=== PATIENT | male | born 1940 | race Caucasian/White ===

== ENCOUNTER → 2018-05-03 13:36 | Outpatient (CLI) | payer MEDICARE, BC, SELFPAY ==
--- NOTE | 2018-05-03 13:47 | RAD_ITS ---
STUDY: X-RAY - RIGHT SHOULDER REASON FOR EXAM: Male, 78 years old. Injury. Pain. TECHNIQUE: 4 view(s) of the shoulder. COMPARISON: None. 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 There is degenerative arthrosis of the acromioclavicular joint without inferior osseous spur formation. Normal acromion. Normal humeral head and visualized proximal humerus. The soft tissue structures are unremarkable. There is no demonstrated fracture. Normal visualized pulmonary apex. RAD/Shoulder min 2 Views IMPRESSION: Degenerative changes. No acute fractures or dislocations. Electronically Signed: Juan Antonio Taylor MD at 13:50 EDT , Service support ,
== END ==
PROVIDERS: Referring Provider Physician Assistant; Visit Provider Physician Assistant
DX: S40.011A Contusion of right shoulder, initial encounter (principal)
CPT/HCPCS: 73030

== ENCOUNTER 2018-06-23 14:30 | Outpatient (RCR) | payer MEDICARE, BC, SELFPAY ==
--- NOTE | 2018-06-16 14:58 | HP.PTEVAL_ITS ---
Patient's Visit Information CHICHO HOLDEN is a 78 year old M referred to Physical Therapy by RANCHO Hernandez with a diagnosis of . Date of Evaluation: 06/16/18 Physical Therapist: Khalif Moreland DPT, [place] - Visit Plan Frequency: 1-2x /Week Duration: 4-6 Weeks Plan: weekly to progress HEP to strength or increase frequency for US adn CFM if not improving and progress to strength. Pec stretch also next session - Subjective Findings: Took a spill in January landing on R shoulder. Had lots of pain since then. Pain is intermittent and anterior adn top especially with lifting and reaching. Fell while watering plants on wet surface and slipped on incline. No pain prior. Soaks shoulder in hot water at night and that helps. Was hoping pain would go away but it didn't. Recently went to doctor for treatment as it was not going away. Got an injection and it helped at first. Currently has about the same pain as when he went to see doctor. Overall shoulder is not improving tremendously. Enjoys walking dog a mile or two as main activity. A little pain at rest even when not moving. Sleeping is not great, uses heat on shoulder at night. Tries to sleep on back staying off right side, may sleep on left side. Dog on leash on R arm is OK. Lifting arm is the hard part. Getting dressed with shirt is noticeable pain as is reaching up in the cupboard. - Pain R shoulder Pain Intensity (Out of 10): 1 Pain Intensity Range: 0, 2 - Objective Posture is forward head and scapula. Tenderness in subscap tendon R. Pecs mildly tight. AROM R UE is painful at end of flexiona dn abd to 130 and firm. External rotation painful at end range 75 degrees. IR is normal. PROM elevation is stiff at 130. Sensation UE WNL to gross light touch, c/s AROM normal and painfree. Strength L UE 4+/5, R shoulder rotation 4/ painful IR, ER4 adn not painful, biceps and triceps 5/5, shoulder flex and abd 4 adn pain with a bd. slight + HK and neer R. - scouring R. - ext rotation lag test, - drop arm. - Goals Goal 1:: Full aROM R UE without pain Goal Time Frame: 4-6 Weeks Goal 2:: Patient sleep without waking at night due to pain. Goal Time Frame: 4-6 Weeks Goal 3:: Patient report a 90% improvement in pain to 1/10 at worst adn only with reaching activities transiently. Goal Time Frame: 4-6 Weeks Goal 4:: I approp HEP to minimize future problems. Goal Time Frame: 4-6 Weeks - Rehabilitation Potential Rehabilitation Potential: Fair - Anticipated Interventions Patient/Client Instruction: Educate patient on: Condition, Plan of Care For the Purpose of:: To decrease pain, To improve ability of physical actions for home/community/work/leisure Therapeutic Exercise to Include: Strength training, Postural training, Flexibilty training, Passive ROM, Active ROM For the Purpose of:: To decrease pain, To increase ROM, To improve muscle performance and motor function Manual Therapy Techniques to Include: Soft tissue mobilization For the Purpose of:: To decrease pain Cryotherapy (ice pack, ice massage): Yes Thank you for the opportunity to evaluate your patient. For Medicare and Medicare HMO plans, please review the plan of care and approve it. It will need to be FAXED BACK to us at [phone] for Medicare purposes. For Medicare only, by signing this I certify the plan of care. Please let me know if there are questions or concerns regarding this plan of care. Physician Signature: Date:
--- OUTSIDE RECORDS SUMMARY | 2018-08-11 13:23 | XMS RPT_ITS ---
:1940 Author Organization OHIP Care Team Providers Name Role Phone Alex Cedeno Attending Unavailable NOT, DEFINED Referring Unavailable Anderson Rocha Attending Unavailable Primay Care Physicia, No Primary Care Unavailable Anderson Rocha Referring Unavailable Anderson Rocha Attending Unavailable Primay Care Physicia, No Referring Unavailable Alex Cedeno Attending Unavailable Alex Cedeno Referring Unavailable Primay Care Physicia, No Primary Care Unavailable Jerry Madden Attending Unavailable NOT, DEFINED Referring Unavailable PROBLEMS PROBLEMS DATE TYPE CONDITION / CODE ATTENDING STATUS SOURCE 06/23/2018 Unknown M75.101 - Anderson Rocha Active [facility] Unspecified Community rotator cuff tear Hospital or rupture of Repository right shoulder, not specified as traumatic / M75.101(ICD-10) 05/03/2018 Unknown S40.011A - Alex Cedeno Active [place] Contusion of [facility] right shoulder, Hospital initial encounter Repository / S40.011A(ICD-10) PROCEDURES PROCEDURES No Procedure Records FoundRESULTS RESULTS ORTHOPEDIC VISIT Observed: 06/19/2018 Status: F Source: [place] REPORT 7:34 AM [facility] REPOSITORY [facility] [address] [place] [address] [address] [place] [id number] OFFICE VISIT Date of Service: 06/15/18 MR#: [id number] Acct: [id number] Name: CHICHO HOLDEN Rep #: [id number] : 1940 Provider: RANCHO Rocha Age/Sex: 78/M Location: [facility] Status: Signed Intake Intake Visit Reasons: RIGHT SHOULDER Chief Complaint: Right shoulder contusion Allergies No Known Allergies Allergy (Verified 05/03/18 13:19) [facility] Medical History history of internal bleeding (Acute) history of polio (Acute) Social History Smoking Status: Never smoker alcohol intake: never HPI RIGHT SHOULDER: Details: CHICHO HOLDEN is a 78 year old M here today for right shoulder pain, he had a fall in January when he slipped on wet grass and landed on the lateral part of the right shoulder. He has had pain since his fall and in april he was having so much pain trying to sleep that [facility], xrays were negative for a fracture and he was instructed to f/u with ortho if the pain did not resolve. He has pain with flexion and IR in the AC joint and referred into the bicep. Denies any weakness, no treatments, no injections and he has not been doing any exercises. Denies numbness, tingling or other associated symptoms. Tylenol is not as helpful at night. Ortho Exam Right Shoulder Skin/Wound: No ecchymosis Contralateral Normal: Yes Testing: Positive Hawkin's, Neer's, TTP AC Joint, Speed's, AROM-Forward Elevation 0-180 and PROM-External Rotation at side 0-60; negative TTP Biceps, Drop Arm, Yergason's, Apprehension Test or empty can Internal Rotation: T12 SHOULDER: Patient has no abnormalities noted on inspection of the shoulder. He has no localized or generalized swelling of the area. He has full range of motion of the right shoulder comparable to the left shoulder. He has a very minor decrease in strength on the right side throughout movements. No tenderness on palpation of the biceps at the same time does have some pain with speeds test. Office Procedures Ortho Injections Injections Yes Subacromial Injection Right Details: Obtained consent for injection. Under sterile conditions, injected the patients right subacromial joint with a 10cc cocktail of 8cc bupivacaine and 2cc kenalog. The patient tolerated the injection well without any noted complication. Patient should call our office if redness develops, pain worsens or if they have any concerns. Office Meds Kenalog Performing Provider: RANCHO Hernandez Administered by: RANCHO Hernandez on 06/15/18 13:47 Dose Route Admin Location Lot Number Expiration DateNDC Building Services Supervisor 80 mg Intra-Articularright [id number] 06/17/19 1081-4870-30 [facility] Assessment AND Plan Plan At this time patient has evidence of rotator cuff impingement on the right side. We discussed the likelihood of a partial tear at the same time with his range of motion and strength he would not be a surgical candidate at this time. We discussed options and at this time he would like to start some physical therapy and would like to go ahead with an injection into that shoulder to help with pain in the meantime. We will see him back in 6-8 weeks following physical therapy. If no improvement that time we will discuss MRI of the shoulder. Follow-up sooner if any new concerns or complaints. Personally reviewed the patient's medical history, medications, surgeries and recent exams if available. X-rays were reviewed. There is no obvious fracture, dislocation, or lucency noted. Educated on the anatomy of the shoulder and etiology of his pain, explained that he has signs of . His treatment options are do nothing, PT, MRI, injection. Follow up in [] or sooner if pain, swelling, numbness or associated symptoms, or concerns develop. All questions answered. Patient in agreement of plan. Orders Orders: Medications Discontinued: Kenalog (triamcinolone acetonide) Disc80 mg (2 mL) Intra- Articular ONCE 2 mL 0RM75.101 ontinued Reason: Office Medication has bF NS een Documented as given Plan Detail Follow Up 8 Weeks Coding Level of Care Code Off vis,new,level 3 Additional Codes document imaging manager.sub ([id number]) 06/19/18 0734 <Electronically signed by Anderson VICKERS> Date Anderson VICKERS Cosigner Signature: Date (if applicable) CC: INITAL EVALUATION (1) Observed: 06/19/2018 Status: F Source: BENEDICTA - PT 6:49 AM [facility] REPOSITORY [facility] Physical [facility] [address] [place] [address] Fax [facility]HAB[facility]ATION SERVICES INITIAL EVALUATION MR#: [id number] Acct: [id number] Name: CHICHO HOLDEN Rep #: [id number] : 1940 78 From: Khalif Moreland DPT, OCS, CSCS Referring Dr.: RANCHO Rocha Status: REG RCR Insurance: MEDICARE PART A B ANTHEM Patient's Visit Information CHICHO HOLDEN is a 78 year old M referred to Physical Therapy by RANCHO Hernandez with a diagnosis of . Date of Evaluation: 06/16/18 Physical Therapist: Khalif Moreland DPT, OC - Visit Plan Frequency: 1-2x /Week Duration: 4-6 Weeks Plan: weekly to progress HEP to strength or increase frequency for US adn CFM if not improving and progress to strength. Pec stretch also next session - Subjective Findings: Took a spill in January landing on R shoulder. Had lots of pain since then. Pain is intermittent and anterior adn top especially with lifting and reaching. Fell while watering plants on wet surface and slipped on incline. No pain prior. Soaks shoulder in hot water at night and that helps. Was hoping pain would go away but it didn't. Recently went to doctor for treatment as it was not going away. Got an injection and it helped at first. Currently has about the same pain as when he went to see doctor. Overall shoulder is not improving tremendously. Enjoys walking dog a mile or two as main activity. A little pain at rest even when not moving. Sleeping is not great, uses heat on shoulder at night. Tries to sleep on back staying off right side, may sleep on left side. Dog on leash on R arm is OK. Lifting arm is the hard part. Getting dressed with shirt is noticeable pain as is reaching up in the cupboard. - Pain R shoulder Pain Intensity (Out of 10): 1 Pain Intensity Range: 0, 2 - Objective Posture is forward head and scapula. Tenderness in subscap tendon R. Pecs mildly tight. AROM R UE is painful at end of flexiona dn abd to 130 and firm. External rotation painful at end range 75 degrees. IR is normal. PROM elevation is stiff at 130. Sensation UE WNL to gross light touch, c/s AROM normal and painfree. Strength L UE 4+/5, R shoulder rotation 4/ painful IR, ER4 adn not painful, biceps and triceps 5/5, shoulder flex and abd 4 adn pain with abd. slight + HK and neer R. - scouring R. - ext rotation lag test, - drop arm. - Goals Goal 1:: Full aROM R UE without pain Goal Time Frame: 4-6 Weeks Goal 2:: Patient sleep without waking at night due to pain. Goal Time Frame: 4-6 Weeks Goal 3:: Patient report a 90% improvement in pain to 1/10 at worst adn only with reaching activities transiently. Goal Time Frame: 4-6 Weeks Goal 4:: I approp HEP to minimize future problems. Goal Time Frame: 4-6 Weeks - Rehabilitation Potential Rehabilitation Potential: Fair - Anticipated Interventions Patient/Client Instruction: Educate patient on: Condition, Plan of Care For the Purpose of:: To decrease pain, To improve ability of physical actions for home/community/work/leisure Therapeutic Exercise to Include: Strength training, Postural training, Flexibilty training, Passive ROM, Active ROM For the Purpose of:: To decrease pain, To increase ROM, To improve muscle performance and motor function Manual Therapy Techniques to Include: Soft tissue mobilization For the Purpose of:: To decrease pain Cryotherapy (ice pack, ice massage): Yes Thank you for the opportunity to evaluate your patient. For Medicare and Medicare HMO plans, please review the plan of care and approve it. It will need to be FAXED BACK to us at [phone] for Medicare purposes. For Medicare only, by signing this I certify the plan of care. Please let me know if there are questions or concerns regarding this plan of care. Physician Signature: Date: <Electronically signed by Khalif Moreland DPT, OCS, CSCS> 06/19/18 0649 CC: No Primary Care Physician; RANCHO Rocha EBG Signed URGENT CARE VISIT Observed: 05/03/2018 Status: F Source: [place] REPORT 1:59 PM [facility] REPOSITORY [facility] [address] [place] [address] OFFICE VISIT Date of Service: 05/03/18 MR#: [id number] Acct: [id number] Name: CHICHO HOLDEN Rep #: [id number] : 1940 Provider: Alex VICKERS Age/Sex: 78/M Location: [facility] Status: Signed Intake Vital Signs05/03/18 Height 6 ft 3 in Intake Visit Reasons: RT SHOULDER INJURY X A MONTH AGO Chief Complaint: Right shoulder contusion Allergies No Known Allergies Allergy (Verified 05/03/18 13:19) Medications NK 03/28/18 [History Confirmed 05/03/18] [facility] Medical History history of internal bleeding (Acute) history of polio (Acute) Social History Smoking Status: Never smoker alcohol intake: never HPI HPI Chief Complaint: Right shoulder contusion Details: CHICHO HOLDEN, is a 78 M who presents to the office today for initial evaluation right shoulder pain. Patient states approximately a month ago while at home tripping falling in the yard landing on lateral aspect of right shoulder. He notes moderate severe aching discomfort initially, though noting over the last 3-4 days his symptoms have improved slightly. He notes no loss of range of motion to the same. He notes mild generalized tenderness to palpation throughout the shoulder capsule. He notes no loss of sensation strength or function distal to the injury site. He notes no other associated symptoms and no other alleviating or aggravating factors. ROS Const Constitutional: No other (ROS negative x10 other than as noted above) Exam Const General: cooperative, healthy appearing, no acute distress Nutritional Appearance: average body habitus Orientation: alert, awake, oriented x3 Neck Neck: normal visual inspection, full ROM, no lymphadenopathy, no meningeal signs, supple Neck mass: No Thyroid: thyroid normal Lymphatic: no lymphadenopathy noted Chest Chest palpation AND inspection: normal inspection of the chest Resp Effort AND Inspection: normal respiratory effort, able to speak in complete sentences, symmetric chest movement Cardio Pulses: radial pulses present Skin General: no rashes or lesions noted Neuro General: alert, awake, oriented x3, gait normal Cognition: normal cognition Speech: speech normal Gait: normal gait Motor: muscle tone normal throughout Sensory Exam: no sensory deficits noted Extrem General: normal to inspection, full ROM, normal capillary refill, no joint enlargement, normal exam except as noted (Generalized tenderness to palpation throughout right shoulder capsule) Other: Right shoulder radiographs taken today reveal no acute pathology per my review, pending radiologist interpretation at the time of this dictation. Psych Appearance: grossly normal Mental Status: mental status grossly normal Mood: congruent mood Affect: normal affect Speech and Movement: speech and movement normal Attitude: cooperative Thought Process: normal Thought Content: normal Judgment: judgment good Assessment AND Plan Problems 1. Contusion of right shoulder S40.011A Plan Right shoulder radiographs taken today reveal no acute pathology per my review, pending radiologist interpretation at the time of this dictation. Rest, ice, home range of motion exercises, Advil/Tylenol as needed for symptomatic relief. Follow-up with PCP in 5-7 days should symptoms not improved, sooner should symptoms worsen or any other concerns develop. Patient states acknowledging understanding all the above. This note was generated with Kite dictation software. It may contain incorrect words, spelling, and punctuation that were not noted in checking the note before signing. Orders Orders: Coding Level of Care Code Off vis,new,level 4 Diagnoses Contusion of right shoulder S40.011A Time Spent (min) 35 05/03/18 1359 <Electronically signed by Alex VICKERS> Date Alex VICKERS Cosigner Signature: Date (if applicable) CC: SHOULDER MIN 2 VIEWS Observed: 05/03/2018 Status: F Source: BENEDICTA 1:47 PM [facility] REPOSITORY [facility] Imaging Services [address] [place] [address] [place] [address] Shoulder min 2 Views MR#: [id number] Acct: [id number] Name: CHICHO HOLDEN Rep #: [id number] : 1940 M 78 From: Juan Antonio Taylor MD PCP: Care Physician, No Primary Status: REG CLI Study: Shoulder min 2 Views Date of Exam: 05/03/18 Exam# [id number] Ordering Dr: Alex Cedeno STUDY: X-RAY - RIGHT SHOULDER REASON FOR EXAM: Male, 78 years old. Injury. Pain. TECHNIQUE: 4 view(s) of the shoulder. COMPARISON: None. 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 There is degenerative arthrosis of the acromioclavicular joint without inferior osseous spur formation. Normal acromion. Normal humeral head and visualized proximal humerus. The soft tissue structures are unremarkable. There is no demonstrated fracture. Normal visualized pulmonary apex. RAD/Shoulder min 2 Views IMPRESSION: Degenerative changes. No acute fractures or dislocations. Electronically Signed: Juan Antonio Taylor MD at 13:50 EDT , Service support , CC: No Primary Care Physician; Alex VICKERS Mandarin Teacher: Signed URGENT CARE VISIT Observed: 03/28/2018 Status: F Source: BENEDICTA REPORT 4:30 PM [facility] REPOSITORY [facility] [address] [place] [address] [address] [place] [address] OFFICE VISIT Date of Service: 03/28/18 MR#: [id number] Acct: [id number] Name: CHICHO HOLDEN Rep #: [id number] : 1940 Provider: Jerry VICKERS Age/Sex: 78/M Location: [facility] Status: Signed Intake Vital Signs03/28/18 Height 6 ft 3 in 03/28/18 Weight: 190 lb 03/28/18 Body Mass Index (BMI) 23.7 03/28/18 Blood Pressure 122/86 Intake Visit Reasons: SORE ON NOSE Trolley Worker Required: No Accompanied by: self Is patient in pain?: No Allergies No Known Allergies Allergy (Verified 03/28/18 12:04) Medications NK [NK] 03/28/18 [History Confirmed 03/28/18] [facility] Medical History history of internal bleeding (Acute) history of polio (Acute) Social History Smoking Status: Never smoker alcohol intake: never HPI HPI Details: CHICHO HOLDEN, is a 78 M who presents to the office today for concern for a growth to the bridge of his nose. Patient states that he was at the dentist office earlier today and was advised to seek medical attention for a small growth to the bridge of his nose. Patient denies any pain to the area or recent trauma. He does state that he believes it is only been present for approximately last month or 2 however is not completely sure. She denies any previous skin cancers or skin issues. No other associated symptoms or alleviating/aggravating factors. ROS Const Constitutional: No chills, fever(s), fatigue or abnormal sleep pattern ENT ENT: No nasal discharge, nose pain, nasal obstruction, nasal congestion or facial pain Skin Skin: Positive for other (Small growth to the bridge of his nose); no wounds, lesions or skin pain Breast Breast: Positive for other (Small growth to the bridge of his nose) Neuro Neurology: No behavioral changes or confusion Psych Psychiatric: No behavioral changes, No confusion, No abnormal sleep pattern Endo Endocrine: No fatigue Exam Const General: cooperative, healthy appearing [facility] Head: normocephalic, atraumatic Ears: hearing grossly normal bilaterally Nose: nasal mucous membranes and turbinates normal, septum normal, no nasal discharge, external nose abnormal other (New skin colored nevus with slightly irregular borders on the bridge) Face and sinus: face symmetric Mouth: oral mucosae normal Throat: posterior oropharynx normal Skin Other: See nose exam for positive findings. Neuro General: alert, CN's II-XI intact bilaterally Psych Appearance: grossly normal Mental Status: mental status grossly normal Assessment AND Plan Problems 1. Suspicious nevus D22.9 Status Acute Plan Patient advised follow-up with his full stack java developer for further evaluation of the suspicious nevus. Patient advised to avoid sun exposure and to use sunscreen at all times. Coding Level of Care Code Off vis,new,level 3 Diagnoses Suspicious nevus D22.9 03/28/18 1630 <Electronically signed by Jerry VICKERS> Date Jerry VICKERS Cosigner Signature: Date (if applicable) CC: ALLERGIES ALLERGIES DATE TYPE / CODE NAME / CODE REACTION SEVERITY SOURCE 05/03/2018 Drug No Known Unknown [facility] Allergy/4160 Allergies/F00 Hospital 62806(SNOMED [id number](RXNOR Repository CT) M) ENCOUNTERS ENCOUNTERS ADMIT/DISCHARGE ACCOUNT ADMITTING ENCOUNTER LOCATION SOURCE NUMBER CLASS 06/23/2018 [id number] Ambulatory [place] 1 [facility] ing:PT Repository 06/15/2018/ [id number] Ambulatory BMSBuilding:B [place] 8 6 [facility] Repository 05/03/2018 [id number] Ambulatory [place] 0 [facility] ing:HPRAD Repository 05/03/2018/ [id number] Ambulatory BMSBuilding:B [place] 8 2 [facility] Repository 03/28/2018/ [id number] Ambulatory BMSBuilding:B [place] 8 6 [facility] Repository PAYERS PAYERS ENCOUNTER GUARANTOR PAYER SUBSCRIBER SOURCE 06/23/2018 CHICHO HOLDEN855 Primary CHICHO YAP Insurance:MEDICARE BRANDDOB: [facility] [place] A BPolicy [id number] Hospital [address]Koj: (740) Number: Repository [phone] () [id number] Date:2006-02-15 06/23/2018 Secondary CHICHO Mayers Insurance:ANTHEMPolic BRANDDOB: Community y Number: [id number] [id number] Repository Date:2546-27-61[address], [place] [address]KV: 06/23/2018 Tertiary NOT GIVENUNK [place] Insurance:SELF PAY [facility] Number: Effective Repository Date:2018-06-15 06/15/2018 CHICHO HOLDEN855 Primary CHICHO German [place] Insurance:MEDICARE BRANDDOB: [employer] PART A [facility] [id number] Hospital [address]Buv: (740) Number: Repository [phone] () [id number] Date:2018-05-30 06/15/2018 Secondary CHICHO German [place] Insurance:ANTHEMPolic BRANDDOB: Community y Number: [id number] [id number] Repository Date:7653-82-18[address], [place] [address]VD: 06/15/2018 Tertiary NOT GIVENUNK [place] Insurance:SELF PAY [facility] Number: Effective Repository Date:2018-06-15 05/03/2018 CHICHO HOLDEN855 Primary CHICHO German [place] FRACIS[place] Insurance:MEDICARE BRANDDOB: [employer] PART A [facility] [id number] Hospital [address]Xvd: (740) Number: Repository [phone] () [id number] Date:2018-05-03 05/03/2018 Secondary CHICHO German [place] Insurance:ANTHEMPolic BRANDDOB: Community y Number: [id number] [id number] Repository Date:5954-94-06[address], [place] [address]CD: 05/03/2018 Tertiary NOT GIVENUNK [place] Insurance:SELF PAY [facility] Number: Effective Repository Date:2018-05-03 05/03/2018 CHICHO HOLDEN855 Primary CHICHO BRANDDOB: [place] THRONE Insurance:MEDICARE [id number] PART [place] [facility] [address]Rqo: (740) Number: Repository [phone] () [id number] Date:2018-05-03 05/03/2018 Secondary CHICHO NAVINKATLIN: [place] Insurance:ANTHEMPolic [id number] Community y Number: Hospital [id number] Repository Date:9008-70-82[address] [place] [address]OU: 05/03/2018 Tertiary NOT GIVENUNK [place] Insurance:SELF PAY [facility] Number: Effective Repository Date:2018-05-03 03/28/2018 CHICHO RALPH Primary CHICHO VALENZUELA: [place] THRONE Insurance:MEDICARE [id number] [id number]: (740) Number: Repository [phone] () [id number] Date:2018-03-28 03/28/2018 Secondary CHICHO VALENZUELA: [place] Insurance:ANTHEMPolic [id number] Community y Number: Hospital [id number] Repository Date:1872-36-37[address], [place] [address]TN: 03/28/2018 Tertiary NOT GIVENUNK [place] Insurance:SELF PAY [facility] Number: Effective Repository Date:2018-03-28
--- NOTE | 2018-09-11 07:56 | HP.PTDCNRP_ITS ---
HP - Discharge Summary (1) - Patient Information CHICHO HOLDEN was seen in my office for initial evaluation on 06/16/18. The following Plan of Care was established for this patient: Initial Frequency: 1-2x /Week Initial Duration: 4-6 Weeks - Anticipated Interventions Patient/Client Instruction: Educate patient on: Condition, Plan of Care For the Purpose of:: To decrease pain, To improve ability of physical actions for home/community/work/leisure Therapeutic Exercise to Include: Strength training, Postural training, Flexibilty training, Passive ROM, Active ROM For the Purpose of:: To decrease pain, To increase ROM, To improve muscle performance and motor function Manual Therapy Techniques to Include: Soft tissue mobilization For the Purpose of:: To decrease pain Cryotherapy (ice pack, ice massage): Yes This patient was last seen in our office 06/23/19. Pertinent comments regarding their Physical therapy will appear below: Pt seen 2 visits of POC and then neglected to schedule any further visits. i will dicsconintue aristides t this time due to nonattendance as it has been over two months. At this point I will be discontinuing this patient from physical therapy. I would be happy to see this patient again in the future if found appropriate by t he physician. Thank you! Khalif Moreland, DPT, OCS, CSCS
== END 2018-06-23 19:00 | disposition home or self-care (01) ==
LOC: PT 14:30
PROVIDERS: Referring Provider Physician Assistant; Visit Provider Physician Assistant
DX: M75.101 Unspecified rotator cuff tear or rupture of right shoulder, not specified as traumatic (principal)
CPT/HCPCS: 97110; 97162

== ENCOUNTER → 2018-09-05 08:48 | Outpatient (CLI) | payer MEDICARE, BC, SELFPAY ==
[2018-09-05 10:16] LABS: Absolute Lymphocyte Count 2.14 X10^3/ul (0.83-4.51); Absolute Neutrophil Count 2.1 X10^3/uL (2.0-7.7); Basophil# 0.03 X10^3/uL; Basophil% 0.6 % (0-1); Eosinophil# 0.05 X10^3/uL; Eosinophils% 1.1 % (0-5); Hematocrit 39.4 % (40-54); Hemoglobin 12.2 g/dl (13.0-16.5); Lymphocyte # 2.14 X10^3/ul (4.0); Lymphocyte % 45.9 % (19-41); Mean Corpuscular Hgb 29.6 pg (27.0-32.0); Mean Corpuscular Volume 95.6 fL (80-94); Mean Platelet Vol. 11.9 fl (6.2-12.0); Monocyte# 0.36 X10^3/uL; Monocyte% 7.7 % (0-10); Neutrophil # 2.07 X10^3/uL (2.7-7.7); Neutrophil % 44.5 % (47-70); POSITIVE COUNT NO; POSITIVE DIFFERENTIAL NO; POSITIVE MORPHOLOGY NO; Platelet Count 204 K/mm3 (150-450); RBC Distribution Width CV 14.3 % (11.6-14.6); RBC Distribution Width SD 49.3 fl (35.1-43.9); Red Blood Count 4.12 M/mm3 (4.6-6.2); White Blood Count 4.7 K/mm3 (4.4-11.0)
[2018-09-05 10:43] LABS: AST(SGOT) 17 U/L (15-37); Alanine Aminotransfer ALT/SGPT 21 U/L (16-61); Albumin, Serum 3.5 g/dL (3.2-5.0); Alkaline Phosphatase 98 U/L (45-117); Anion Gap 8 (5-15); BUN 19 mg/dL (7-18); BUN/Creat Ratio 15.6 RATIO (10-20); Calcium,Total 8.5 mg/dL (8.5-10.1); Chloride 108 mmol/L (98-107); Creatinine, Serum 1.22 mg/dL (0.70-1.30); EST Glomerular Filtration Rate 61 mL/min (>60); Est Glom Filt Rate - Afr Amer 74 mL/min (>60); Globulin 3.6 g/dL (2.2-4.2); Glucose 70 mg/dL (74-106); PSA,Total - Annual Screen 6.22 ng/mL (0.00-4.00); Potassium 4.4 mmol/L (3.5-5.1); Protein, Total 7.1 g/dL (6.4-8.2); Sodium Level 143 mmol/L (136-145); Thyroid Stim Hormone (TSH) 5.02 uIU/mL (0.358-3.74)
[2018-09-05 10:52] LABS: Vitamin B12 436 pg/mL (211-911)
[2018-09-05 13:54] LABS: T4 Free Direct 0.79 ng/dL (0.76-1.46)
== END ==
PROVIDERS: Visit Provider Family Medicine
DX: E04.1 Nontoxic single thyroid nodule (principal); R41.3 Other amnesia; K62.5 Hemorrhage of anus and rectum; Z12.5 Encounter for screening for malignant neoplasm of prostate
CPT/HCPCS: 36415; 80053; 82607; 84153; 84439; 84443; 85025; G0103

== ENCOUNTER → 2018-09-07 10:42 | Outpatient (CLI) | payer MEDICARE, BC, SELFPAY ==
[2018-09-07 12:49] LABS: Ferritin 7 ng/mL (26-388); Iron 60 ug/dL (65-175); Iron Binding Capacity,Total 418 ug/dL (250-450)
[2018-09-08 17:11] LABS: Anti-Thyroglobulin AB < 1.0 IU/mL (0.0-0.9); PSA, Free 2.38 ng/mL; PSA, Free % 31.3 % (.); PSA, Total Ultrasensitive 7.6 ng/mL (0.0-4.0); Thyroglobulin, Serum Qt. 10.5 ng/mL (1.4-29.2); Thyroid Peroxidase AB 13 IU/mL (0-34)
== END ==
PROVIDERS: Family Provider Family Medicine; PCP Family Medicine; Referring Provider Family Medicine; Visit Provider Family Medicine
DX: D64.9 Anemia, unspecified (principal); R97.20 Elevated prostate specific antigen [PSA]
CPT/HCPCS: 82728; 82746; 83540; 83550; 84153; 84154; 84432; 86376; 86800

== ENCOUNTER → 2018-09-12 11:52 | Outpatient (CLI) | payer MEDICARE, BC, SELFPAY ==
[2018-09-11 14:24] VITALS: BMI 24.0
--- NOTE | 2018-09-12 11:58 | US_ITS ---
STUDY: THYROID ULTRASOUND REASON FOR EXAM: Male, 78 years old. Nodule. TECHNIQUE: Ultrasound evaluation of the thyroid was performed with real-time and static travis-scale imaging. COMPARISON: None. FINDINGS: RIGHT LOBE: The right lobe of the thyroid gland measures 5 x 1.7 x 1.5 cm. There is a homogeneous echotexture. In the lateral upper lobe there is a 0.6 x 0.4 x 0.5 cm isoechoic nodule with hypoechoic rim. In the mid to lower thyroid there is a 0.3 cm anechoic structure with a bright echogenic nodule. Posteriorly in the mid thyroid there is a 0.2 x 0.2 x 0.3 cm hypoechoic nodule with echogenic central nodule. LEFT LOBE: The left lobe of the thyroid gland measures 4.4 x 1.4 x 1.0 cm. There is a homogeneous echotexture. There is a 0.5 x 0.4 x 0.4 cm anechoic structure with central isoechoic nodule. In the posterior lower pole there is a 0.4 x 0.3 x 0.6 cm isoechoic nodule. ISTHMUS: The isthmus measures 0.6 cm. The regional lymph nodes are normal. US/Thyroid IMPRESSION: Bilateral nodules. The most suspicious nodule, in the lower pole of the left thyroid is scored as a TR 3, mildly suspicious by ACR TIRADS classification. This should be followed up in one, 3 and 5 years Electronically Signed: Balta Edmonds DO at 23:09 EST Tel [phone], Service support ,
--- NOTE | 2018-09-12 13:31 | ECHOD_ITS ---
Reason For Study: Murmur Procedure This was a 2D Doppler, Color Flow transthoracic echocardiogram. The exam was of adequate technical quality. Exam performed in department. Left Ventricle Normal LV size. Left ventricular systolic function is normal. The estimated ejection fraction is 60 %. No evidence for diastolic dysfunction. No regional wall motion abnormalities noted. Right Ventricle Normal RV size. Normal systolic function. Atria Normal left atrium. Normal right atrium. No doppler evidence for ASD. Mitral Valve There is no mitral annular calcification. Normal mitral valve. Trivial mitral valve insufficiency. Tricuspid Valve Normal tricuspid valve. Trivial tricuspid valve insufficiency. Aortic Valve Bicuspid aortic valve. Mild focal aortic valve calcification. Mild (1+) aortic valve insufficiency. Pulmonic Valve The pulmonic valve is not well visualized. Great Vessels Mild to moderately dilated aortic root. Pericardium/Pleural No pericardial effusion. MMode/2D Measurements & Calculations LVIDd: 4.7 cm IVSd: 1.1 cm LVOT diam: 2.0 cm LVIDs: 2.5 cm LVPWd: 1.0 cm LVOT area: 3.3 cm2 FS: 46.4 % Ao root diam: 4.5 cm LAV(MOD-sp2): 58.4 ml LA dimension: 3.5 cm Time Measurements MV dec time: 0.21 sec Doppler Measurements & Calculations MV E max kj: 64.1 cm/sec Lat Peak E' Kj: 10.8 cm/sec Med Peak E' Kj: 7.9 cm/sec MV A max kj: 91.9 cm/sec E/E' lat: 5.9 E/E' med: 8.1 MV E/A: 0.70 MV V2 max: 103.0 cm/sec MV P1/2t max kj: 91.5 cm/sec Ao V2 max: 110.0 cm/sec MV max P.2 mmHg MV P1/2t: 151.7 msec Ao max P.8 mmHg MV V2 mean: 53.8 cm/sec MV mean P.3 mmHg MV dec slope: 176.7 cm/sec2 ALISON(V,D): 2.6 cm2 MV V2 VTI: 40.0 cm MVA(P1/2t): 1.5 cm2 AI max kj: 348.8 cm/sec LV V1 max: 87.9 cm/sec PA V2 max: 81.1 cm/sec AI max P.7 mmHg LV V1 max P.1 mmHg AI dec slope: 104.4 cm/sec2 AI P1/2t: 978.1 msec Interpretation Summary Left ventricular systolic function is normal. The estimated ejection fraction is 60 %. Trivial mitral valve insufficiency. Trivial tricuspid valve insufficiency. Bicuspid aortic valve. Mild focal aortic valve calcification. Mild (1+) aortic valve insufficiency. 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 No evidence for diastolic dysfunction. Ordering Physician: Mk Espinoza Referring Physician: Mk Espinoza Performed By: Carlitos March RCS
== END ==
PROVIDERS: Family Provider Family Medicine; PCP Family Medicine; Referring Provider Family Medicine; Visit Provider Family Medicine
DX: R01.1 Cardiac murmur, unspecified (principal); E04.1 Nontoxic single thyroid nodule
CPT/HCPCS: 76536; 93306

== ENCOUNTER 2018-09-26 07:15 | Day surgery (SDC) | payer MEDICARE, BC, SELFPAY ==
[2018-09-11 14:24] VITALS: BMI 24.0
[2018-09-26] VITALS (7 sets, daily range): BP systolic 119–131; BP diastolic 59–72; PULSE 58–77; RESP 16; TEMP 36.8–37.5; O2SAT 94–98; BMI 23.9
--- NOTE | 2018-09-26 | IMM_PTH ---
PATIENT: CHICHO HOLDEN LOC: EN U#:[id number] AGE/SX: 78/M ROOM: RE09/26/[address]: Dr. Abhishek Luis MD : 1940 BED: DIS: 09/26/2018 SPEC #: [id number] RECD: 09/27/18 13:27 STATUS: ALTAGRACIA REMinda #: [id number] ANDREZ: 09/26/18 00:[address]: Abhishek Luis DEPT: IMMUNOHISTOCHEMISTRY RECD BY: Melissa Calvo ENTERED: 09/27/18 13:29 SP TYPE: IMMUNO OTHR DR: Dr. Mk Espinoza MD Tissues: A - Stomach, NOS D - Rectosigmoid junction Procedures: H Pylori (initial) MSH2 (add) MLH-1 (add) MSH6 (add) Anti-PMS2 (add) ANDERSON-2 (add) HER2 SVITLANA (add) P53 (add) KI-67 (initial) PHYSICIAN & INSTITUTION [address] [address] SPECIMEN INFORMATION: Tissue Source: A - Biopsy of cardia, D - Biopsy of rectosigmoid mass Clinical Info: Anemia, personal history peptic ulcer disease Specimen Number: [id number] A & D CPT code: 03698 x2, 34808 x7 METHODOLOGY: Deparaffinized sections of prefer/formalin-fixed tissue or PAP/DQ stained slides are incubated with monoclonal/polyclonal antibodies/oligonucleotide probes. Localization is made via biotin free immunoperoxidase method. Appropriate controls are performed and reacted as expected. Results on target cell population are indicated in the following table: RESULTS: ANTIBODY / CLONE RESULT Block A H Pylori (polyclonal) positive Block D Ki-67 (30-9) positive, >95% P53 (DO-7) positive, 20%, moderate to dim ANDERSON-2 (SP21) positive MLH-1 (M1) positive MSH2 (25D12) positive MSH6 (44) positive PMS2 (ATR1110) positive Her-2neu (CB11) negative These tests were developed and their performance characteristics determined by [facility]. They may not have been cleared or approved by the U.S. Food and Drug Administration. The FDA has determined that such clearance or approval is not necessary. INTERPRETATION: A. Biopsy of cardia: Positive for Helicobacter pylori organisms. D. Rectosigmoid mass, biopsy: Result of Microsatellite Instability Study: Negative (no loss of mismatch protein; no microsatellite instability detected). AM:dick 09/28/18
--- NOTE | 2018-09-26 08:15 | EGD_PTH ---
PATIENT: CHICHO HOLDEN LOC: EN U#:[id number] AGE/SX: 78/M ROOM: RE09/26/[address]: Dr. Abhishek Luis MD : 1940 BED: DIS: 09/26/2018 SPEC #: [id number] RECD: 09/26/18 09:22 STATUS: ALTAGRACIA MARIANO #: [id number] ANDREZ: 09/26/18 08:[address]: Abhishek Luis DEPT: SURGICAL PATHOLOGY RECD BY: Michael Zheng ENTERED: 09/26/18 11:34 SP TYPE: EGD BIOPSY MAI DR: Dr. Mk Espinoza MD Tissues: A - Gastric mucous membrane B - Duodenum, NOS C - Esophageal mucous membrane D - Rectum, NOS Procedures: Surgery Specimen Level IV HEADER OPERATION: Colonoscopy, EGD ([facility]) PRE-OP DIAGNOSIS: Anemia, personal history peptic ulcer disease TISSUE SUBMITTED: A - Biopsy of cardia, B - Biopsy of duodenum, C - Biopsy of distal esophagus, D - Biopsy of rectosigmoid mass MICROSCOPIC DIAGNOSIS A. Gastric cardia, biopsy: Chronic active gastritis. See comment. B. Duodenum, biopsy: Microscopic focus of gastric metaplasia. C. Distal esophagus, biopsy: Fragments of benign squamous mucosa. No evidence of inflammation. D. 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 See comment. AM:dick 09/27/18 COMMENT A. The results of immunohistochemistry for Helicobacter pylori will be reported separately ([id number]). D. The results from microsatellite instability will be reported separately ([id number]). Case has been reviewed in consultation with Dr. Xavier who concurs with the above diagnosis. IDC:SJ MICROSCOPIC DESCRIPTION Slides are reviewed. GROSS DESCRIPTION A - Received in fixative is one container labeled with the patient's name and designated biopsy of cardia. The specimen consists of two irregular fragments of light gaston soft tissue that in aggregate measure 0.4 x 0.3 x 0.1 cm. The specimen is totally submitted in one cassette. B - Received in fixative is one container labeled with the patient's name and designated biopsy of duodenum. The specimen consists of one irregular fragment of light gaston soft tissue that measures 0.5 x 0.3 x 0.1 cm. The specimen is totally submitted in one cassette. C - Received in fixative is one container labeled with the patient's name and designated distal esophagus biopsy. The specimen consists of one irregular fragment of light gaston soft tissue that measures 0.2 x 0.2 x 0.1 cm. The specimen is totally submitted in one cassette. D - Received in fixative is one container labeled with the patient's name and designated biopsy of rectosigmoid mass. The specimen consists of multiple irregular fragments of light gaston soft tissue that in aggregate measure 1 x 0.4 x 0.1 cm. The specimen is totally submitted in one cassette. / SJ:rg 09/26/18 TC:0 [facility]: [address] x4 ADDENDUM ADDENDUM ADDENDUM ADDENDUM ADDENDUM ADDENDUM ADDENDUM ADDENDUM ADDENDUM ADDENDUM ADDENDUM ADDENDUM ADDENDUM ADDENDUM ADDENDUM ADDENDUM ADDENDUM 05/28/2022 09:08 ADDENDUM 05/28/2022 09:08 ADDENDUM 05/28/2022 09:08 ADDENDUM 05/28/2022 09:08 ADDENDUM 05/28/2022 09:08 This addendum is added to incorporate an outside pathology consultation report. The case was examined at [facility] (#[id number]) and the following diagnosis was rendered. Stomach, duodenum, esophagus and rectosigmoid, biopsies: A. Stomach gastric cardia, biopsy: H. pylori-associated active chronic gastritis. B. Duodenum, biopsy: No pathologic abnormality. C. Esophagus, distal, biopsy: No pathologic abnormality. D. Rectosigmoid mass, biopsy: Adenocarcinoma. Please see complete above mentioned consultation report in EMR
--- NOTE | 2018-09-26 09:03 | OP.ENDO_ITS ---
09/26/2018 Mk Espinoza [address] [place] [address] Re : Upper GI endoscopy procedure for Bryan Arthur Dear Dr. Espinoza This procedure was performed on Wednesday, September 26, 2018. My impressions and recommendations are as follows: Impressions : - Z-line regular, 45 cm from the incisors. - Mild Schatzki ring. Biopsied. - Patent Billroth I gastroduodenostomy was found, characterized by erythema. Biopsied. - Normal examined duodenum. Biopsied. Recommendations : - Discharge patient to home. - Resume previous diet. - Continue present medications. - Return to my office in 3 days. My findings are described in the full procedure note, which is enclosed. If I can be of further assistance, please feel free to contact me at Doctor phone number(s): Work: . Sincerely, Abhishek Luis MD 09/26/2018 9:02:53 AM This report has been signed electronically.
--- NOTE | 2018-09-26 09:08 | OP.ENDO_ITS ---
09/26/2018 Mk Espinoza [address] [place] [address] Re : Colonoscopy procedure for Bryan Arthur Dear Dr. Espinoza This procedure was performed on Wednesday, September 26, 2018. My impressions and recommendations are as follows: Impressions : - Decreased sphincter tone, internal hemorrhoids that prolapse with straining, but spontaneously regress to the resting position (Grade II) and enlarged prostate found on digital rectal exam. - Likely malignant tumor in the distal sigmoid colon/rectosigmoid 15cm.. Biopsied. Tattooed distal to lesion. - Tortuous colon. Recommendations : - Discharge patient to home. - Resume previous diet. - Continue present medications. - Repeat colonoscopy in 1 year for surveillance based on pathology results. - Return to my office in 3 days to discuss surgical intervention. My findings are described in the full procedure note, which is enclosed. If I can be of further assistance, please feel free to contact me at Doctor phone number(s): Work: . Sincerely, Abhishek Luis MD 09/26/2018 9:08:08 AM This report has been signed electronically.
== END 2018-09-26 10:23 | disposition home or self-care (01) ==
LOC: EN 07:16 → AC 07:16
PROVIDERS: Family Provider Family Medicine; PCP Family Medicine; Referring Provider Surgery; Visit Provider Surgery
PROC: 0DJD8ZZ Inspection of Lower Intestinal Tract, Via Natural or Artificial Opening Endoscopic (ICD-10-PCS; CPT 45378; principal; 2018-09-26 08:10)
DX: D50.9 Iron deficiency anemia, unspecified (principal); D49.0 Neoplasm of unspecified behavior of digestive system; K22.2 Esophageal obstruction; K64.8 Other hemorrhoids; K62.89 Other specified diseases of anus and rectum; N40.0 Benign prostatic hyperplasia without lower urinary tract symptoms; K64.1 Second degree hemorrhoids; K29.50 Unspecified chronic gastritis without bleeding; Q43.8 Other specified congenital malformations of intestine; Z85.828 Personal history of other malignant neoplasm of skin; Z87.11 Personal history of peptic ulcer disease; Z98.0 Intestinal bypass and anastomosis status
CPT/HCPCS: 43239; 45381; 88305; 88341; 88342; J7120; A4648; J2405

== ENCOUNTER → 2018-09-28 11:00 | Outpatient (CLI) | payer MEDICARE, BC, SELFPAY ==
[2018-09-11 14:24] VITALS: BMI 24.0
[2018-09-26 07:35] VITALS: BMI 23.9
--- NOTE | 2018-09-28 11:03 | CT_ITS ---
STUDY: CT ABDOMEN AND PELVIS WITH CONTRAST REASON FOR EXAM: Male, 78 years old. The patient has a history of colon mass seen on colonoscopy. RADIATION DOSAGE (If Supplied By Facility): CTDIvol = ( 14.45 ) mGy, DLP = ( 841.52 ) mGycm TECHNIQUE: Transaxial images were obtained from the dome of the diaphragm to the symphysis pubis with oral contrast. Isovue 300 100 IV/Oral was administered. Sagittal and coronal images were reconstructed. Individualized dose optimization techniques were used for this CT. COMPARISON: None. FINDINGS: There is a 1.7 cm x 2.4 cm pleural-based nodular density in the lateral aspect of the right lower lobe as seen on axial image #10. Bronchovascular markings are seen entering this nodular density. This may represent round atelectasis. An underlying neoplastic process cannot be excluded. There is also evidence of increased markings at both lung bases suggestive of bibasilar scarring and mild degree of bronchiectasis. Coronary artery calcification. Normal liver. Normal gallbladder and extrahepatic biliary system. Normal spleen. Normal pancreas. Normal bilateral adrenal glands. Right renal cysts. The largest measures 3.7 cm x 3.7 cm. There is also evidence of bilateral parapelvic cysts. 2 small cysts are seen in the upper pole of the left kidney. Largest cysts are seen in the lower pole of the left kidney. The largest measures 3.3 cm x 3.3 cm. Normal visualized stomach. Surgical clips are seen in the gastroesophageal junction most likely secondary to prior hiatal hernia repair. Clinical correlation is recommended. Normal small intestine. A moderate amount of fecal material is seen throughout the colon. There is dilatation of the right hemicolon to the level of the proximal descending colon. A transition point is seen at that site. There appears to be colonic wall thickening at that site suggestive of possible neoplastic involvement. There is evidence of diffuse circumferential wall thickening of the rectum and rectosigmoid sigmoid colon. Scattered sigmoid diverticula are also seen. The appendix is visualized and appears normal. There is diffuse atherosclerotic calcification of the abdominal aorta, without a demonstrated aneurysm. Normal inferior vena cava. Normal retroperitoneum. Normal urinary bladder. There is enlargement of the prostate gland. It measures 6.8 cm x 7 cm. This causes indentation at the bladder base. There is a small umbilical hernia containing fat. Normal osseous structures. CT/Abdomen/Pelvis WITH Contrast IMPRESSION: Pleural-based nodular density in the right lower lobe as described most likely representing rounded atelectasis although a neoplastic nodule cannot be excluded. Circumferential wall thickening of the proximal descending colon. Circumferential wall thickening of the rectosigmoid colon and rectum. Enlarged prostate. Bilateral renal cysts. Electronically Signed: Sharad Mendiola, at 12:40 EDT , Service support ,
--- NOTE | 2018-09-28 11:27 | US_ITS ---
STUDY: SUPERFICIAL ULTRASOUND - THIGH SOFT TISSUES, RIGHT REASON FOR EXAM: Male, 78 years old. Palpable lump right thigh medially TECHNIQUE: A superficial ultrasound was performed with real-time and color Doppler, static travis-scale imaging. COMPARISON: None. FINDINGS: At the location of palpable lump within the subcutaneous fat there is an anechoic oval sharply marginated cyst measuring 15 x 15 x 9 mm with no abnormal surrounding vascular flow. There is no apparent connection to the undersurface of the dermis. No tract to the skin. US/Ext Non Vasc Limited/Soft Tiss IMPRESSION: Subcutaneous simple cyst. Electronically Signed: Washington Alex MD at 10:45 EDT Tel , Service support ,
== END ==
PROVIDERS: Family Provider Family Medicine; PCP Family Medicine; Referring Provider Family Medicine; Visit Provider Family Medicine
DX: R22.41 Localized swelling, mass and lump, right lower limb (principal); K63.9 Disease of intestine, unspecified
CPT/HCPCS: 74177; 76882; Q9967

== ENCOUNTER → 2018-10-04 06:53 | Outpatient (CLI) | payer MEDICARE, BC, SELFPAY ==
[2018-09-26 07:35] VITALS: BMI 23.9
--- NOTE | 2018-10-04 07:01 | CT_ITS ---
STUDY: CT CHEST WITH CONTRAST REASON FOR EXAM: Male, 78 years old. Aortic root dilatation. Pulmonary nodules. RADIATION DOSAGE (If Supplied By Facility): CTDIvol = ( 12.16 ) mGy, DLP = ( 425.42 ) mGycm TECHNIQUE: Transaxial imaging was performed following intravenous administration of 100mL ml of Isovue 370 contrast material. Coronal and sagittal reformatted images were created. Individualized dose optimization techniques were used for this CT. COMPARISON: Abdominal CT dated 09/28/2018. FINDINGS: There is stable right basilar opacity which likely represents rounded atelectasis. There are no additional pulmonary nodules or masses. There are no pulmonary infiltrates or pleural effusions. There is no pneumothorax. The heart and pericardium are within normal limits. There is no thoracic lymphadenopathy. There is no evidence of thoracic aortic aneurysm. Images through the upper abdomen demonstrate no significant abnormality. There are no destructive osseous lesions. CT/Chest WITH Contrast IMPRESSION: No evidence of thoracic aortic aneurysm. Stable right basilar opacity which likely represents rounded atelectasis. Otherwise, clear lungs. A follow-up chest CT in 3 to 6 months is recommended Electronically Signed: Alex Vasquez, at 16:00 EDT Tel , Service support ,
== END ==
PROVIDERS: Family Provider Family Medicine; PCP Family Medicine; Referring Provider Family Medicine; Visit Provider Family Medicine
DX: I77.810 Thoracic aortic ectasia (principal); Z85.038 Personal history of other malignant neoplasm of large intestine
CPT/HCPCS: 71260; Q9967

== ENCOUNTER 2018-10-10 07:33 | Inpatient (IN) | payer MEDICARE, BC, SELFPAY ==
[2018-09-26 07:35] VITALS: BMI 23.9
[2018-10-03 10:16] VITALS: BP 121/65; PULSE 68; RESP 17; TEMP 37; O2SAT 96; BMI 24.0
--- NOTE | 2018-10-03 10:53 | SDCEKG_ITS ---
Test Reason : Blood Pressure : / mmHG Vent. Rate : 058 BPM Atrial Rate : 058 BPM P-R Int : 194 ms QRS Dur : 072 ms QT Int : 408 ms P-R-T Axes : 055 005 056 degrees QTc Int : 400 ms Sinus bradycardia Otherwise normal ECG Confirmed by KARINA ECHEVERRIA, BLADE ([id number]), graphics editor OSMANY HENDERSON ([id number]) on 10/04/2018 8:59:42 AM Referred By: Abhishek Luis Confirmed By:BLADE COLLINS MD
[2018-10-03 11:20] LABS: Hematocrit 38.4 % (40-54); Mean Corp Hgb Conc 31.3 g/gl (32-36); Mean Corpuscular Hgb 29.6 pg (27.0-32.0); Mean Corpuscular Volume 94.6 fL (80-94); Mean Platelet Vol. 10.8 fl (6.2-12.0); Platelet Count 257 K/mm3 (150-450); RBC Distribution Width CV 13.7 % (11.6-14.6); RBC Distribution Width SD 45.8 fl (35.1-43.9); Red Blood Count 4.06 M/mm3 (4.6-6.2); Scan Indicated on CBC? Y/N NO; White Blood Count 6.3 K/mm3 (4.4-11.0)
[2018-10-03 11:58] LABS: Anion Gap 5 (5-15); BUN 24 mg/dL (7-18); BUN/Creat Ratio 20.7 RATIO (10-20); Calcium,Total 8.5 mg/dL (8.5-10.1); Chloride 106 mmol/L (98-107); Creatinine, Serum 1.16 mg/dL (0.70-1.30); EST Glomerular Filtration Rate 65 mL/min (>60); Est Glom Filt Rate - Afr Amer 78 mL/min (>60); Estimated Creatinine Clearance 63.74 ml/min; Glucose 107 mg/dL (74-106); Sodium Level 138 mmol/L (136-145)
[2018-10-10] VITALS (12 sets, daily range): BP systolic 123–171; BP diastolic 68–93; PULSE 57–91; RESP 16–18; TEMP 36.4–37.4; O2SAT 95–100; BMI 24.0
--- NOTE | 2018-10-10 | COL._PTH ---
PATIENT: CHICHO HOLDEN LOC: MS3 U#:[id number] AGE/SX: 78/M ROOM: VA313 RE10/10/[address]: Dr. Abhishek Luis MD : 1940 BED: 1 DIS: 10/12/2018 SPEC #: [id number] RECD: 10/10/18 12:10 STATUS: ALTAGRACIA REMinda #: [id number] ANDREZ: 10/10/18 00:[address]: Abhishek Luis DEPT: SURGICAL PATHOLOGY RECD BY: Melissa Calvo ENTERED: 10/10/18 13:47 SP TYPE: COLON OTHR DR: Dr. Mk Espinoza MD Tissues: A - Sigmoid colon biopsy B - Colon Donuts C - Colon Donuts Procedures: Surgery Specimen Level IV Surgery Specimen Level HEADER OPERATION: ERAS, laparoscopic sigmoid colectomy PRE-OP DIAGNOSIS: Malignant neoplasm of sigmoid colon TISSUE SUBMITTED: A - Sigmoid colon for gross exam 1205, B - Sigmoid donut, C - Rectal donut MICROSCOPIC DIAGNOSIS A. Sigmoid colon, segmental colectomy: Invasive moderately differentiated adenocarcinoma. See cancer checklist below. B. Sigmoid colon donut, excision: Fragments of colonic tissue, negative for malignancy. C. Rectal donut, excision: Fragments of colonic tissue, negative for malignancy. AM:dick 10/12/18 COMMENT COLON CANCER SUMMARY: Specimen - sigmoid colon Procedure - sigmoidectomy Tumor site - sigmoid colon Tumor size - 2.8 x 2.6 x 1.3 Macroscopic tumor perforation - not identified Histologic type - adenocarcinoma Histologic grade - low grade (moderately differentiated) Microscopic tumor extension - tumor invades focally into the subserosal fat. Tumor is located 5.5 cm from its closest (stapled) margin of excision. Margins: Proximal margin - uninvolved by invasive carcinoma. Distal margin - uninvolved by invasive carcinoma. Circumferential margin - uninvolved by invasive carcinoma. Treatment effect - unknown Lymph-Vascular invasion - not identified Perineural invasion - not identified Tumor deposits - not identified Lymph nodes: Number of lymph nodes examined - 31 Number of lymph nodes involved - 0 Distant metastasis - unknown Ancillary studies: See microsatellite instability study by IHC ([id number]) for complete details. Negative (no loss of mismatch protein; no microsatellite instability detected). PATHOLOGIC STAGE: pT3 N0 Mx The above summary is in compliance with [employer] [place] [employer] (CAP) Cancer Protocols Checklist and [place] Joint Committee on Cancer (AJCC), Staging Manual, 8th Ed. Reference is made to the patient's previous rectosigmoid mass biopsy ([id number]) in which invasive well to moderate differentiated adenocarcinoma was identified. Case has been reviewed in consultation with Dr. Xavier who concurs with the above diagnosis. IDC:SJ MICROSCOPIC DESCRIPTION Slides are reviewed. GROSS DESCRIPTION A - Received fresh for OR consultation labeled with the patient's name is a specimen designated sigmoid colon. The specimen consists of a 35 cm segment of bowel. Located 5.5 cm from the closest (stapled) margin of excision is a polypoid pink-gaston lesion measuring 2.8 x 2.6 x 1.3 cm. The proximity of the lesion to this closest stapled margin is conveyed to the surgeon intraoperatively. No gross perforation is identified. The bowel is surrounded by fibrofatty tissue. The remainder of the bowel mucosa is thrown into normal folds. No other mass lesions are identified. The serosal surface in the area of the mass is inked in black ink. Serial sections through the mass do not reveal extension of mass into the surrounding fibrofatty tissue. Serial sections of the fibrofatty tissue reveal a number of nodules representing lymph nodes. Apprentice Embalmer sections are submitted in 12 cassettes as follows: 1 - mucosal margins (stapled inked in black), 2-6 - tumor, totally submitted, 7-12 - multiple lymph nodes in each cassette. / AM: 10/11/18 B - Received in fixative is one container labeled with the patient's name and designated sigmoid donut. The specimen consists of a donut-shaped piece of colonic tissue measuring 2 x 2 x 1 cm. Multiple sutures are noted. Apprentice Embalmer sections are submitted in one cassette. / SJ: 10/11/18 C - Received in fixative is one container labeled with the patient's name and designated rectal donut. The specimen consists of a donut-shaped piece of colonic tissue measuring 2 x 2 x 1.5 cm. Multiple mika are noted. The mucosa is congested. Apprentice Embalmer sections are submitted in one cassette. / SJ:rg 10/11/18 TC:0 CPT: 84169, 07122 q2, 50204 ADDENDUM ADDENDUM ADDENDUM ADDENDUM ADDENDUM ADDENDUM ADDENDUM ADDENDUM ADDENDUM ADDENDUM ADDENDUM ADDENDUM ADDENDUM ADDENDUM ADDENDUM ADDENDUM 05/28/2022 09:21 ADDENDUM 05/28/2022 09:21 ADDENDUM 05/28/2022 09:21 ADDENDUM 05/28/2022 09:21 ADDENDUM 05/28/2022 09:21 This addendum is added to incorporate an outside pathology consultation report. The case was examined at [facility] (#[id number]) and the following diagnosis was rendered. Sigmoid colon, segmental colectomy, sigmoid colon donut, excision, rectal donut, excision. A. Colon, sigmoid, segmental colectomy: Adenocarcinoma, moderately differentiated. Lymph nodes: 31 lymph nodes with no pathologic abnormality. B. Colon, sigmoid donut, excision: No pathologic abnormality. C. Rectum donut, excision: No pathologic abnormality. Please see complete above mentioned consultation report in EMR
--- NOTE | 2018-10-10 | IMM_PTH ---
PATIENT: CHICHO HOLDEN LOC: MS3 U#:[id number] AGE/SX: 78/M ROOM: MS313 RE10/10/[address]: Dr. Abhishek Luis MD : 1940 BED: 1 DIS: 10/12/2018 SPEC #: [id number] RECD: 10/12/18 12:53 STATUS: ALTAGRACIA REQ #: [id number] ANDREZ: 10/10/18 00:[address]: Abhishek Luis DEPT: IMMUNOHISTOCHEMISTRY RECD BY: Melissa Calvo ENTERED: 10/12/18 12:55 SP TYPE: IMMUNO OTHR DR: Dr. Mk Espinoza MD Tissues: A - Sigmoid colon biopsy Procedures: MLH-1 (add) MSH6 (add) Anti-PMS2 (add) ANDERSON-2 (add) HER2 SVITLANA (add) KI-67 (add) P53 (add) MSH2 (initial) PHYSICIAN & INSTITUTION [place] [id number] SPECIMEN INFORMATION: Tissue Source: A - Sigmoid colon Clinical Info: Sigmoid colon malignant neoplasm Specimen Number: [id number] CPT code: 86151, 24213 x7 METHODOLOGY: Deparaffinized sections of prefer/formalin-fixed tissue or PAP/DQ stained slides are incubated with monoclonal/polyclonal antibodies/oligonucleotide probes. Localization is made via biotin free immunoperoxidase method. Appropriate controls are performed and reacted as expected. Results on target cell population are indicated in the following table: RESULTS: ANTIBODY / CLONE RESULT Block A3 Ki-67 (30-9) positive, moderate to high P53 (DO-7) positive, 2% dim ANDERSON-2 (SP21) positive MLH-1 (M1) positive MSH2 (25D12) positive MSH6 (44) positive PMS2 ([id number]) positive Her-2neu (CB11) negative These tests were developed and their performance characteristics determined by [facility]. They may not have been cleared or approved by the U.S. Food and Drug Administration. The FDA has determined that such clearance or approval is not necessary. INTERPRETATION: Sigmoid colon: Invasive adenocarcinoma. Result of Microsatellite Instability Study: Negative (no loss of mismatch protein; no microsatellite instability detected). AM:dick 10/13/18
[2018-10-10 08:35] LABS: Bedside Glucose 87 mg/dL (70-110)
[2018-10-10] MEDS: Acetaminophen 500 MG Tablet 1000 MG PO (08:41)
[2018-10-10] MEDS: Gabapentin 600 MG Tablet PO (08:41)
[2018-10-10] MEDS: Lactated Ringers 1,000 ML 40 ML IV (08:44)
[2018-10-10] MEDS: Magnesium Sulfate 4gm/100mL 4 GM/100 ML IV.SOLN. IV (08:44)
--- NOTE | 2018-10-10 09:28 | PCM.DC.GS ---
Discharge Diet: Light diet - advance as tolerated - if you have questions about your diet instructions, please talk to you doctor. Discharge Activity: May Not Drive - for 1 week or while taking narcotic pain medicine. May shower in (days): 1 Lifting Restrictions: 10 pounds Call your doctor if your incision/area has: Continuous Slow Oozing, Sudden Increased Bleeding, Increased Pain/ Swelling, Increased Redness, Foul Smelling Discharge Call your doctor if you observe: Fever of 101 or Higher Suture Line Care: Avoid Pulling/Pushing, Avoid Pinching/Bending Additional Dressing/Incision Instructions:: Change or remove dressing in 4 days. Leave steri-strips in place for 1 week. Allergies/Adverse Reactions: Allergies No Known Allergies Allergy (Verified 10/03/18 10:07) Medications to take at Discharge Coconut Oil 100 gm MC DAILY 09/26/18 Ferrous Sulfate [Iron] 325 mg PO BID 09/26/18 Gluc Prieto/Chondro Prieto A/Vit C/Mn [Glucosamine Chondroitin Tab] 1 each PO DAILY 09/26/18 Multivitamin [Multiple Vitamins] 1 each PO DAILY 09/26/18 Breese-3 Fatty Acids/Fish Oil [Fish Oil 1,000 mg Capsule] 1 each PO DAILY 09/26/18 Pumpkin Seed Oil/Saw Blue Grass [Saw Blue Grass 160 mg Softgel] 160 mg PO DAILY 09/26/18 Amoxicillin 2 cap PO BID 10/03/18 Clarithromycin 500 mg PO BID 10/03/18 Ginkgo Biloba Hall Extract [Ginkgo] 60 mg PO DAILY 10/03/18 Lansoprazole [Prevacid] 30 mg PO BID 10/03/18 Metronidazole 500 mg PO DIRECTED 10/03/18 Neomycin Sulfate 500 mg PO DIRECTED 10/03/18 Primary Care Physician: Mk Espinoza MD [Primary Care Provider] - Test Results: Test results from this visit will be discussed in further detail at your follow-up appointment, if applicable. Please Follow Up With: Abhishek Luis MD - [phone] When: Call to make an appointment to be seen in about 10 days.
[2018-10-10] MEDS: Lubricating Jelly 60 GM Tube 30 GM TOPICAL (10:38)
[2018-10-10] MEDS: BUPIVACAINE LIPOSOME/PF 20 ML VIAL OPERA.SITE (10:41)
[2018-10-10] MEDS: Bupivacaine 0.25% 30 ML Vial (10:42)
--- NOTE | 2018-10-10 13:19 | OP.PCM_ITS ---
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 78-year-old gent was taken the operating placement table underwent general endotracheal intubation anesthesia. Cefotetan 2 g were given intravenously. The abdomen sterilely prepped draped. He had been placed in a low lithotomy position with beanbag positioning. Ioban draping was used. Initially to the right of the umbilicus I instilled local and try to gain access with Visiport technology however it appeared like there might have been bowel present so then I switched and made a small mini Pfannenstiel incision and did a direct cutdown incised the fascia transversely got access to the posterior peritoneum incised that placed a Weeks catheter suprapubically insufflated the abdomen. There were dense adhesions of transverse colon and omentum to the anterior abdominal wall in the epigastric area from the patient's along previous midline incision. 5-minute trochars from the placed to the right of the umbilicus in the right mid abdomen in the right lower quadrant. Inspection failed to reveal any gross metastatic disease. There is evidence of any include staining very distal in the sigmoid colon. The sigmoid colon was extraordinarily lax and redundant. I incised the peritoneum toward the left paracolic gutter was able to identify the left ureter and carefully observe the left ureter was identified to down into the pelvis. I elevated the rectosigmoid and flush with the pelvic brim used the Enseal device to transect tissue down to the pelvis. I had to partly invert the peritoneum in order to get adequate distance as I continue to use the Enseal device to obtain hemostasis. I was able to get clearance past my previous in the ink marking. I then mobilized the colon proximally transected the inferior mesenteric artery flush with the space with the extra-large hemoclips and the Enseal device. This allowed for even further mobilization and collection of lymphatics. I felt that I had enough mobilized so then I transected the rectal sigmoid with 3 firings of a 60 mm Ech maria de jesus using a gold load. Rigid sigmoidoscope was inserted fluid was instilled into the pelvis and the suture line appeared to be airtight. The Pfannenstiel incision was a slightly lengthened. A wound protector was placed the colon was exited at an appropriate placed in the mid to more proximal sigmoid mesentery was transected hemostasis obtained with hemo-lock clips and 4 3-0 silk sutures. Then the bowel was transected with a whip suture of 2-0 Prolene was placed at 33 circular anastomotic stapler was inserted and secured with a whip string that was dropped back in the abdomen. The rectum was irrigated with dilute Betadine. Sizers was used and the 33 mm stapler was inserted per rectum nicely reached the rectosigmoid at the staple line. I positioned it so as to encompass where the staple line had overlap. The trocar was exited. It was made into the antral 2 were approximated the device was fired. The device was then personally released and removed. The donuts were inspected and noted to be completely intact. Sigmoidoscopy again performed staple line was nicely intact air was insufflated and it was absolutely again absolutely no air leak. The pelvis was irrigated and aspirated free. There was no omentum placed overlying. A bilateral tap block was now performed. I had 20 cc of Exparel mixed with 30 cc of 0.25% Marcaine with an additional 50 cc of saline. Under laparoscopic control bilaterally performed a tap block with multiple injections. This was done in the oblique fascia. I then utilized to further local to anesthetize the fascia directly Pfannenstiel incision. The peritoneum at the Pfannenstiel instrument was closed with a running 0 Vicryl. The fascia was closed with running 0 PDS. Skin edges approximated with simple or running 4-0 Monocryl subdermal stitches. Steri-Strips Telfa and OpSite dressings applied. Sponge and instrument and needle counts were reported the surgeon be correct. Blood loss was minimal at less than 100 cc. Specimens include sigmoid colon plus donuts. Drains none. Blood loss minimal. Abhishek Luis M.D., F.A.C.S. Type of Anesthesia:: General Anesthesiologist: Juliane Mistry
[2018-10-10 17:26] LABS: Bedside Glucose 135 mg/dL (70-110)
[2018-10-10] MEDS: Ondansetron 4 MG/2 ML Vial IV (19:49)
[2018-10-11] MEDS: Enoxaparin 30 MG/0.3 ML Syringe SC (05:31)
--- NOTE | 2018-10-11 06:09 | PCM.PN.SRG ---
Subjective: Liquid stool last night Nausea has resolved Not much walking yet Comfortable - Physical Exam Vital Signs Temp Pulse Resp BP Pulse Ox 99.3 F H 91 18 132/75 H 95 10/10/18 21:06 10/10/18 21:06 10/10/18 21:06 10/10/18 21:06 10/10/18 21:06 Oxygen Flow Rate (L/min) 6 Oxygen Delivery Method Room Air Weight: 194 lb 7.163 oz Body Mass Index (BMI) 24.0 Intake and Output for Last 24 Hours 10/09/18 10/10/18 10/11/18 23:59 23:59 23:59 Intake Total 1400 / 1400 626 / 626 Output Total 500 / 500 675 / 675 Balance 900 / 900 -49 / -49 Laboratory Tests Past 24 Hrs 10/10/18 10/11/18 10/11/18 08:00 05:40 05:40 WBC Pending RBC Pending Hgb Pending Hct Pending MCV Pending MCH Pending MCHC Pending RDW Pending RDW Differential Pending Plt Count Pending Neut % (Auto) Pending Absolute Neuts (auto) Pending Total Counted Pending Sodium Pending Potassium Pending Chloride Pending Carbon Dioxide Pending Anion Gap Pending BUN Pending Creatinine Pending Est GFR (MDRD) Af Amer Pending Est GFR (MDRD) Non-Af Pending BUN/Creatinine Ratio Pending Glucose Pending Calcium Pending Carcinoembryonic Ag Pending POC Glucose 10/10/18 10/10/18 17:22 08:32 POC Glucose 135 H 87 Medical Necessity - Tobacco Use Smoking Status: Never smoker Assessment/Plan All Active Problems (Last Updated 09/30/18 @ 10:52 by Kaitlyn Padilla) Colon cancer (Acute) Abnormal chest CT (Acute) History of partial gastrectomy (Acute) Helicobacter pylori gastritis (Acute) Personal history of peptic ulcer disease (Acute) Iron deficiency anemia (Acute) Contusion of right shoulder (Acute) Suspicious nevus (Acute) Pt in [place] Will hep lock IVF Transitional diet DC planning
[2018-10-11 06:13] LABS: Absolute Lymphocyte Count 1.52 X10^3/ul (0.83-4.51); Absolute Neutrophil Count 7.8 X10^3/uL (2.0-7.7); Basophil# 0.01 X10^3/uL; Basophil% 0.1 % (0-1); Hematocrit 36.9 % (40-54); Hemoglobin 11.4 g/dl (13.0-16.5); Lymphocyte # 1.52 X10^3/ul (4.0); Lymphocyte % 15.1 % (19-41); Mean Corp Hgb Conc 30.9 g/gl (32-36); Mean Corpuscular Hgb 29.7 pg (27.0-32.0); Mean Corpuscular Volume 96.1 fL (80-94); Mean Platelet Vol. 11.7 fl (6.2-12.0); Monocyte# 0.76 X10^3/uL; Monocyte% 7.5 % (0-10); Neutrophil # 7.78 X10^3/uL (2.7-7.7); Neutrophil % 77.2 % (47-70); Platelet Count 218 K/mm3 (150-450); RBC Distribution Width CV 14.5 % (11.6-14.6); Red Blood Count 3.84 M/mm3 (4.6-6.2); White Blood Count 10.1 K/mm3 (4.4-11.0)
[2018-10-11 06:19] LABS: POSITIVE COUNT NO; POSITIVE DIFFERENTIAL NO; POSITIVE MORPHOLOGY NO
[2018-10-11 06:31] LABS: Anion Gap 6 (5-15); BUN 11 mg/dL (7-18); BUN/Creat Ratio 8.7 RATIO (10-20); Calcium,Total 7.7 mg/dL (8.5-10.1); Chloride 109 mmol/L (98-107); Creatinine, Serum 1.26 mg/dL (0.70-1.30); EST Glomerular Filtration Rate 59 mL/min (>60); Est Glom Filt Rate - Afr Amer 71 mL/min (>60); Estimated Creatinine Clearance 58.68 ml/min; Glucose 111 mg/dL (74-106); Potassium 4.1 mmol/L (3.5-5.1); Sodium Level 142 mmol/L (136-145)
[2018-10-11 08:25] VITALS: BP 122/70; PULSE 75; RESP 16; TEMP 37.2; O2SAT 95
[2018-10-11] MEDS: Pantoprazole Sodium 40 MG Tablet PO ×2 (09:13→21:15)
--- NOTE | 2018-10-11 11:00 | CASEMGMT ---
RN MAXIMO Face to Face with patient for initial transition planning/care coordination assessment. RN CM introduced self and role at [facility]. Patient lying in bed, alert and oriented, at bedside. Patient willing to participate in assessment and is able to answer all questions appropriately. Care providers, pharmacy, and demographics verified. Patient wishes to discharge home, denies need for home health at this time. Patient states he has no further needs or concerns at this time. CM to follow for discharge planning needs that may arise. PCP: Alexis Specialists: Toby, surgeon; Airam, urologist Preferred Pharmacy: [facility] Insurance: [employer] Prescription Benefit: Yes Living Will/HPOA: Yes, Reed Arthur LNOK: Living Arrangements: Patient lives with in home with bed and bath on main level of home. Patient is independent at home. Transportation: self/ DME/HHC: Patient has grab bar in bathroom. Denies further DME. No previous HHC or SNF Disposition Plan: Patient to discharge home with family support and follow-up plans in place. Felipa LINK, RN, CM
[2018-10-11 11:47] LABS: Carcinoembryonic Antigen 1.9 ng/mL (0.0-4.7)
[2018-10-11] MEDS: Ensure Surgery 237 ML LIQUID PO ×2 (12:00→21:15)
[2018-10-11 14:47] VITALS: BP 118/68; PULSE 76; RESP 16; TEMP 37.3; O2SAT 96
--- NOTE | 2018-10-11 16:28 | NURSING ---
PT AMBULATING IN HALLS WITH SPOUSE. WAS BLADDERSCANNED FOR 450ML, BUT ONLY WAS ABLE TO VOID 50ML. ENCOURAGE AMBULATION AND RECHECK PVR.
--- NOTE | 2018-10-11 17:29 | NURSING ---
ST CATH FOR 425ML.
[2018-10-11] MEDS: Tamsulosin HCl 0.4 MG Capsule PO (17:32)
--- NOTE | 2018-10-11 17:49 | PCM.PN.BLA ---
Progress Note Urinary retention Will st. cath and start flomax Hold discharge till tomorrow
[2018-10-11 20:28] VITALS: BP 116/71; PULSE 73; RESP 16; TEMP 37.1; O2SAT 96
[2018-10-12 02:00] VITALS: BP 138/75; PULSE 87; RESP 18; TEMP 37.5; O2SAT 95
[2018-10-12] MEDS: Ensure Surgery 237 ML LIQUID PO (05:55)
[2018-10-12] MEDS: Enoxaparin 30 MG/0.3 ML Syringe SC (05:56)
--- NOTE | 2018-10-12 06:05 | PCM.PN.SRG ---
Subjective: No complaints Voiding improved with decreasing residuals Liquids stools and flatus Minimal discomfort - Physical Exam General: Alert, Oriented x3 Lungs: Clear to auscultation Abdomen: Bowel Sounds Present - wounds clean and dry, Soft, Non Tender Vital Signs Temp Pulse Resp BP Pulse Ox 99.5 F H 87 18 138/75 H 95 10/12/18 02:00 10/12/18 02:00 10/12/18 02:00 10/12/18 02:00 10/12/18 02:00 Oxygen Flow Rate (L/min) 6 Oxygen Delivery Method Room Air Weight: 194 lb 7.163 oz Body Mass Index (BMI) 24.0 Intake and Output for Last 24 Hours 10/10/18 10/11/18 10/12/18 23:59 23:59 23:59 Intake Total 1400 / 1400 626 / 626 840 / 840 Output Total 500 / 500 1100 / 1100 660 / 660 Balance 900 / 900 -474 / -474 180 / 180 Laboratory Tests Past 24 Hrs 10/10/18 10/11/18 10/11/18 08:00 05:40 05:40 WBC 10.1 RBC 3.84 L Hgb 11.4 L Hct 36.9 L MCV 96.1 H MCH 29.7 MCHC 30.9 L RDW 14.5 RDW Differential 48.0 H Plt Count 218 MPV 11.7 Immature Gran % (Auto) 0.100 Neut % (Auto) 77.2 H Lymph % (Auto) 15.1 L [place] % (Auto) 7.5 Eos % (Auto) 0.0 Baso % (Auto) 0.1 Absolute Neuts (auto) 7.8 H Absolute Lymphs (auto) 1.52 Total Counted Not Reportable Sodium 142 Potassium 4.1 Chloride 109 H Carbon Dioxide 27.0 Anion Gap 6 BUN 11 Creatinine 1.26 Estim Creat Clear Calc 58.68 Est GFR (MDRD) Af Amer 71 Est GFR (MDRD) Non-Af 59 L BUN/Creatinine Ratio 8.7 L Glucose 111 H Calcium 7.7 L Carcinoembryonic Ag 1.9 Medical Necessity - Tobacco Use Smoking Status: Never smoker Assessment/Plan All Active Problems (Last Updated 09/30/18 @ 10:52 by Kaitlyn Padilla) Colon cancer (Acute) Abnormal chest CT (Acute) History of partial gastrectomy (Acute) Helicobacter pylori gastritis (Acute) Personal history of peptic ulcer disease (Acute) Iron deficiency anemia (Acute) Contusion of right shoulder (Acute) Suspicious nevus (Acute) Ready for discharge Will send home with one week supply of flomax No narcotics at this time
[2018-10-12 09:30] VITALS: BP 133/76; PULSE 74; RESP 16; TEMP 36.8; O2SAT 96
== END 2018-10-12 09:45 | disposition home or self-care (01) | DRG 331 ==
LOC: ACINP 07:36 → MS3 07:38
PROVIDERS: Admitting Provider Surgery; Family Provider Family Medicine; PCP Family Medicine; Referring Provider Surgery; Visit Provider Surgery
PROC: 0DTN0ZZ Resection of Sigmoid Colon, Open Approach (ICD-10-PCS; CPT 44204; principal; 2018-10-10 09:05)
DX: C18.7 Malignant neoplasm of sigmoid colon (principal); R33.9 Retention of urine, unspecified; K29.70 Gastritis, unspecified, without bleeding; B96.81 Helicobacter pylori [H. pylori] as the cause of diseases classified elsewhere; D50.9 Iron deficiency anemia, unspecified
CPT/HCPCS: 36415; 80048; 82378; 82962; 85025; 85027; 88304; 88305; 88307; 88309; 88341; 88342; 93005; J7050; J7120; C1760; J2405

== ENCOUNTER → 2018-11-21 09:38 | Outpatient (CLI) | payer MEDICARE, BC, SELFPAY ==
[2018-10-24 14:51] VITALS: BMI 23.7
[2018-11-21 12:36] LABS: Absolute Lymphocyte Count 2.27 X10^3/ul (0.83-4.51); Absolute Neutrophil Count 1.5 X10^3/uL (2.0-7.7); Basophil# 0.04 X10^3/uL; Basophil% 0.9 % (0-1); Eosinophil# 0.09 X10^3/uL; Eosinophils% 2.1 % (0-5); Hematocrit 39.9 % (40-54); Hemoglobin 12.5 g/dl (13.0-16.5); Lymphocyte # 2.27 X10^3/ul (4.0); Mean Corp Hgb Conc 31.3 g/gl (32-36); Mean Corpuscular Hgb 29.8 pg (27.0-32.0); Mean Platelet Vol. 12.2 fl (6.2-12.0); Monocyte# 0.37 X10^3/uL; Monocyte% 8.6 % (0-10); Neutrophil # 1.51 X10^3/uL (2.7-7.7); Neutrophil % 35.4 % (47-70); Platelet Count 199 K/mm3 (150-450); RBC Distribution Width CV 15.4 % (11.6-14.6); RBC Distribution Width SD 53.4 fl (35.1-43.9); White Blood Count 4.3 K/mm3 (4.4-11.0)
[2018-11-21 12:42] LABS: POSITIVE COUNT NO; POSITIVE DIFFERENTIAL NO; POSITIVE MORPHOLOGY NO
[2018-11-21 13:19] LABS: Ferritin 24 ng/mL (26-388); Iron 79 ug/dL (65-175); Iron Binding Capacity,Total 343 ug/dL (250-450); T4 Free Direct 0.76 ng/dL (0.76-1.46); Thyroid Stim Hormone (TSH) 3.16 uIU/mL (0.358-3.74)
[2018-11-23 16:02] LABS: Anti-Thyroglobulin AB < 1.0 IU/mL (0.0-0.9); Thyroglobulin, Serum Qt. 6.7 ng/mL (1.4-29.2); Thyroid Peroxidase AB 6 IU/mL (0-34)
== END ==
PROVIDERS: Family Provider Family Medicine; PCP Family Medicine; Referring Provider Family Medicine; Visit Provider Family Medicine
DX: R79.89 Other specified abnormal findings of blood chemistry (principal); D50.9 Iron deficiency anemia, unspecified
CPT/HCPCS: 36415; 82728; 83540; 83550; 84432; 84439; 84443; 85025; 86376; 86800

== ENCOUNTER → 2018-11-22 09:30 | Outpatient (CLI) | payer MEDICARE, BC, SELFPAY ==
[2018-10-24 14:51] VITALS: BMI 23.7
[2018-11-22 09:50] LABS: Mean Corp Hgb Conc 31.7 g/gl (32-36); Mean Corpuscular Hgb 29.6 pg (27.0-32.0); Mean Corpuscular Volume 93.4 fL (80-94); Mean Platelet Vol. 11.3 fl (6.2-12.0); Platelet Count 177 K/mm3 (150-450); RBC Distribution Width CV 15.2 % (11.6-14.6); RBC Distribution Width SD 50.6 fl (35.1-43.9); Red Blood Count 4.39 M/mm3 (4.6-6.2); White Blood Count 4.6 K/mm3 (4.4-11.0)
[2018-11-22 09:52] LABS: Scan Indicated on CBC? Y/N NO
[2018-11-23 15:26] LABS: Carcinoembryonic Antigen 1.8 ng/mL (0.0-4.7)
== END ==
PROVIDERS: Family Provider Family Medicine; PCP Family Medicine; Visit Provider Surgery
DX: C18.9 Malignant neoplasm of colon, unspecified (principal); D50.9 Iron deficiency anemia, unspecified
CPT/HCPCS: 36415; 82378; 85027

== ENCOUNTER → 2018-11-22 10:51 | Outpatient (CLI) | payer MEDICARE, BC, SELFPAY ==
[2018-10-24 14:51] VITALS: BMI 23.7
== END ==
PROVIDERS: Family Provider Family Medicine; PCP Family Medicine; Referring Provider Surgery; Visit Provider Surgery
DX: K29.70 Gastritis, unspecified, without bleeding (principal); B96.81 Helicobacter pylori [H. pylori] as the cause of diseases classified elsewhere

== ENCOUNTER → 2018-11-28 10:39 | Outpatient (CLI) | payer MEDICARE, BC, SELFPAY ==
[2018-11-28 09:49] VITALS: BMI 23.7
== END ==
PROVIDERS: Family Provider Family Medicine; PCP Family Medicine; Referring Provider Surgery; Visit Provider Surgery
DX: K29.70 Gastritis, unspecified, without bleeding (principal); B96.81 Helicobacter pylori [H. pylori] as the cause of diseases classified elsewhere

== ENCOUNTER → 2019-01-15 07:09 | Outpatient (CLI) | payer MEDICARE, BC, SELFPAY ==
[2018-10-24 14:51] VITALS: BMI 23.7
[2018-11-28 09:49] VITALS: BMI 23.7
--- NOTE | 2019-01-15 07:22 | CT_ITS ---
STUDY: CT CHEST WITH CONTRAST REASON FOR EXAM: Male, 78 years old. History of colon cancer RADIATION DOSAGE (If Supplied By Facility): DLP = ( 454.21 ) mGycm TECHNIQUE: Transaxial imaging was performed following intravenous administration of 100ml ml of Isovue 300 contrast material. Coronal and sagittal reformatted images were created. Individualized dose optimization techniques were used for this CT. COMPARISON: CT chest October 04, 2018 FINDINGS: Stable right greater than left base scarring is present. Stable right apical scarring is present. There has been mild interval decrease in right base atelectasis. There is no consolidation. There is no pneumothorax. The heart and pericardium are within normal limits. There is no thoracic lymphadenopathy. There is no evidence of thoracic aortic aneurysm. Upper abdominal surgical changes noted. There are no destructive osseous lesions. CT/Chest WITH Contrast IMPRESSION: Stable right greater than left base scarring, with mild interval decrease in right base atelectasis. Stable right apical scarring. Electronically Signed: Alfonso Fraire, at 17:57 EDT Tel , Service support ,
[2019-01-15 07:26] LABS: Absolute Lymphocyte Count 2.52 X10^3/ul (0.83-4.51); Absolute Neutrophil Count 1.7 X10^3/uL (2.0-7.7); Basophil# 0.05 X10^3/uL; Basophil% 1.1 % (0-1); Eosinophils% 2.1 % (0-5); Hematocrit 40.2 % (40-54); Hemoglobin 13.2 g/dl (13.0-16.5); Lymphocyte # 2.52 X10^3/ul (4.0); Lymphocyte % 53.7 % (19-41); Mean Corp Hgb Conc 32.8 g/gl (32-36); Mean Corpuscular Hgb 30.8 pg (27.0-32.0); Mean Corpuscular Volume 93.7 fL (80-94); Mean Platelet Vol. 10.9 fl (6.2-12.0); Monocyte# 0.36 X10^3/uL; Monocyte% 7.7 % (0-10); Neutrophil # 1.66 X10^3/uL (2.7-7.7); Neutrophil % 35.4 % (47-70); Platelet Count 163 K/mm3 (150-450); RBC Distribution Width SD 50.7 fl (35.1-43.9); Red Blood Count 4.29 M/mm3 (4.6-6.2); White Blood Count 4.7 K/mm3 (4.4-11.0)
[2019-01-15 07:36] LABS: POSITIVE COUNT NO; POSITIVE DIFFERENTIAL NO; POSITIVE MORPHOLOGY NO
[2019-01-15 07:44] LABS: ALB/GLOB Ratio 1.1 RATIO (0.9-2.4); AST(SGOT) 30 U/L (15-37); Alanine Aminotransfer ALT/SGPT 56 U/L (16-61); Albumin, Serum 3.6 g/dL (3.2-5.0); Alkaline Phosphatase 107 U/L (45-117); Anion Gap 2 (5-15); BUN 14 mg/dL (7-18); BUN/Creat Ratio 13.3 RATIO (10-20); Calcium,Total 8.5 mg/dL (8.5-10.1); Chloride 109 mmol/L (98-107); Creatinine, Serum 1.05 mg/dL (0.70-1.30); EST Glomerular Filtration Rate 73 mL/min (>60); Est Glom Filt Rate - Afr Amer 88 mL/min (>60); Globulin 3.3 g/dL (2.2-4.2); Glucose 86 mg/dL (74-106); Potassium 4.1 mmol/L (3.5-5.1); Protein, Total 6.9 g/dL (6.4-8.2); Sodium Level 141 mmol/L (136-145)
[2019-01-15 07:52] LABS: Ferritin 18 ng/mL (26-388); Iron 50 ug/dL (65-175); Iron Binding Capacity,Total 363 ug/dL (250-450); PERCENT IRON SATURATION 13.8 % (15.0-55.0)
[2019-01-16 16:22] LABS: Carcinoembryonic Antigen 1.9 ng/mL (0.0-4.7)
== END ==
PROVIDERS: Family Provider Family Medicine; PCP Family Medicine; Referring Provider Internal Medicine Hematology & Oncology; Visit Provider Internal Medicine Hematology & Oncology
DX: C18.9 Malignant neoplasm of colon, unspecified (principal)
CPT/HCPCS: 36415; 71260; 80053; 82378; 82728; 83540; 83550; 85025; Q9967

== ENCOUNTER → 2019-02-12 09:08 | Outpatient (CLI) | payer MEDICARE, BC, SELFPAY ==
[2018-10-24 14:51] VITALS: BMI 23.7
[2019-01-22 13:10] VITALS: BMI 23.8
[2019-02-12 10:16] LABS: PSA,Total- Diagnostic 5.67 ng/mL (0.0-4.0)
== END ==
PROVIDERS: Family Provider Family Medicine; PCP Family Medicine; Visit Provider Nurse Practitioner Adult Health
DX: R97.20 Elevated prostate specific antigen [PSA] (principal)
CPT/HCPCS: 36415; 84153

== ENCOUNTER → 2019-03-22 11:45 | Outpatient (CLI) | payer MEDICARE, BC, SELFPAY ==
[2019-03-01 09:24] VITALS: BMI 23.8
[2019-03-22 14:56] LABS: Vitamin B12 521 pg/mL (211-911); Vitamin D,25 Hydroxy 26.6 ng/mL (29.95-100.01)
== END ==
PROVIDERS: Family Provider Family Medicine; PCP Family Medicine; Referring Provider Family Medicine; Visit Provider Family Medicine
DX: R41.3 Other amnesia (principal)
CPT/HCPCS: 36415; 82306; 82607

== ENCOUNTER → 2019-04-17 11:41 | Outpatient (CLI) | payer MEDICARE, BC, SELFPAY ==
[2019-03-01 09:24] VITALS: BMI 23.8
[2019-04-18 12:54] LABS: Carcinoembryonic Antigen 1.8 ng/mL (0.0-4.7)
== END ==
PROVIDERS: Family Provider Family Medicine; PCP Family Medicine; Referring Provider Internal Medicine Hematology & Oncology; Visit Provider Internal Medicine Hematology & Oncology
DX: C18.9 Malignant neoplasm of colon, unspecified (principal)
CPT/HCPCS: 36415; 82378

== ENCOUNTER 2019-06-28 13:30 | Outpatient (RCR) | payer MEDICARE, BC, SELFPAY ==
[2019-03-01 09:24] VITALS: BMI 23.8
--- NOTE | 2019-04-13 16:42 | HP.SP.AD_ITS ---
History - History Date of Eval: 04/13/19 Previous speech therapy: No Other Relevant Medical History/Diagnoses/Surgery: Colon cancer diagnosed and treated this year (no chemotherapy or radiation). 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 Though the patient was unable to state any ways that this is affecting his daily life, his reports that he frequently reasks questions that were just discussed 5-15 minutes prior and has difficulty retaining new information. She states that the frequency of these occurances is very high, and that other members of the family are noticing as well. CLQT - CLQT CLQT Administered: Yes CLQT: Cognitive Linguistic Quick Test (CLQT) is a criterion - referenced assessment designed for adults between the ages of 18 and 89 with known or suspected neurological dysfuntions. The CLQT is to assess strength and weaknesses in five cognitive domains. Severity ratings are within normal limit s, mild, moderate, severe deficits. The subtests are as follows: Date: 04/13/19 - CLQT Comments Comments Due to time constraints, the CLQT was unable to be completed in its entirety on this date. The patient achieved the following subtest scores: Personal Facts: Criterion Cut Score (CCS): 8, Patient's Score (PS): 7; Symbol Cancellation: CC S: 10, PS:12; Confrontation Naming: CCS: 10, PS: 10; Clock Drawing: CCS: 11, PS: 13; Story Retelling: CCS: 5, PS: 4; Symbol Trails: CCS: 6, PS: 10. Therefore, the patient was below average for his age range on the Personal Facts and Story Retelling subtests. Bryan incorrectly verbalized his address several times and did not self-correct the house number even with prompts, though he wrote it correctly on his intake form previously on this date (85 vs. 855). When retelling a brief story, he was able to recall only the initial information presented, and after only a brief delay without distraction lost much of that information. Plan - Plan Plan: Skilled speech-language therapy is warranted and medically necessary at th is time, as the patient's STM deficits may make it difficult for him to successfully and safely participate in emergent situations and daily activities at home and other environments. - Recommendations Treatment Warranted: Yes - Frequency Frequency: 1x/Week Duration: 4-6 Weeks - Prognosis Prognosis: Good - Goals that are Established: Determination:: Goals will be added/modified as deemed necessary and appropriate. Therapy will be discontinued when results of re-evaluation indicate therapy is no longer needed or lack of progress has been documented. - Goal #1-5 Goal #1: The patient will participate in further evaluation of cognitive- linguistic functioning via completion of the CLQT, with goal addition/adjustment as necessary. Goal #2: The patient will demonstrate independent use of targeted compensatory short-term memory strategies to recall new information of increasing length and complexity with 90% accuracy in 3/4 consecutive sessions. Goal #3: The patient will independently complete short-term memory tasks (word list recall, detail recall, etc...) of increasing length and complexity with 90% accuracy in 3/4 consecutive sessions. Education - Patient Instruction Patient Education: Diagnosis, Treatment Plan, Goals
--- NOTE | 2019-05-09 19:25 | RE_ITS ---
REASON FOR REFERRAL: The Patient is a 79 year old male referred for a clinical assessment of the patients cognitive communication abilities at [facility] on 04/13/2019 due to persistent memory concerns, with recent screening through the Patients primary care provider triggering a referral for further workup. Testing was initiated on 04/13/2019, with full completion on 05/09/2019. 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 He often forgets recently presented information / events, and will repeat similar questions throughout the day. He can recall family members by sight and by name, though does occasionally demonstrate difficulties recalling grandchildren?s names. He is able to navigate familiar areas without difficulties. No changes in consciousness or arousal levels reported; no reported hallucinations; no issues with ambulation / falls; no issues with continence; no apparent focal neurological signs. His affect appears overall appropriate given the situation / topics discussed, with the Patient remaining very engaging and pleasant throughout the sessions, and maintains his desire and ability to socially engage with others, thought he does tend to become more emotional in response with close individuals, with his family reporting that they will occasionally need to ?pick their battles? in anticipation of frustrating the Patient; though this response appears to be rather mild in severity (doesn?t yell, scream, throw items, etc.). He strongly desires to maintain his ability to meet his social / family responsibilities. The Patient is fully ambulatory appears well nourished and in overall sufficient health. Overall he is independent for all ADLs and IADLs. 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 No workup via neurologist, neuropsychologist, or neuroimaging has been completed to date. MEDICAL HISTORY: Stage IIA (T3, N0, M0) adenocarcinoma of the colon status post laparoscopic sigmoid colectomy (September 2018), Polio, basal cell carcinoma status post resection, helicobacter pylori gastritis, peptic ulcer disease, iron deficiency anemia, prior internal bleeding, rectal bleeding, status post partial gastrectomy, status post esophagogastroduodenoscopy, status post submandibular salivary gland excision. FUNCTIONAL STATUS ASSESSMENT RESULTS: Reid Index of Glenn in Activities of Daily Livin/6 Bathin Dressin Toiletin Transferrin Continence: 1 Feedin [place] ? [place]coe Instrumental Activities of Daily Living Scale (IADL): 8/8 Ability to Use Telephone: 1 Shoppin Food Preparation: 1 Housekeepin Laundry: 1 Mode of Transportation: 1 Responsibility for Own Medications: 1 Ability to Handle Finances: 1 Functional Ambulation Category (FAC): 5 (ambulator- independent) COGNITIVE COMMUNICATION ASSESSMENT RESULTS (QUANTITATIVE): Awareness Questionnaire: Patient Form: 51 Average: 3.0 ? functioning about the same Family Form: 40 Average: 2.35 ? functioning a little worse Clinician Form: 39 Average: 2.29 ? functioning a little worse Aphasia Severity Rating Scale (ASRS): 5 (min / no discernible speech handicap) Apraxia of Speech Rating Scale (ASRS-v1): 0 (not present) Cognitive-Linguistic Quick Test (CLQT): Attention: (Cognitive Domain Score: 187, Severity Rating: WNL) Memory: (Cognitive Domain Score: 128, Severity Rating: MILD) Executive Functioning: (Cognitive Domain Score: 28, Severity Rating: WNL) Language: (Cognitive Domain Score: 26, Severity Rating: MILD) Visuospatial Skills: (Cognitive Domain Score: 89, Severity Rating: WNL) Clock Drawing: (Score: 13, Severity Rating: WNL) Composite Severity Ratin.6 (WNL) Functional Assessment of Verbal Reasoning and Executive Strategies (FAVRES) TASK #2: SCHEDULING Accuracy: (Raw: 4 Percentile: 17th SS: 79) Rational: (Raw: 0 Percentile: 6th SS: 58) Time: (Raw: 22 Percentile: 12th SS: 86) Total Reasoning Sub-skills: (Raw: 12) TASK #4: BUILDING A CASE Accuracy: (Raw: 2 Percentile: 4th SS: 9) Rational: (Raw: 3 Percentile: 3rd SS: 71) Time: (Raw: 17 Percentile: 11th SS: 77) Total Reasoning Sub-skills: (Raw: 10) COGNITIVE COMMUNICATION ASSESSMENT RESULTS (QUALITATIVE): EXECUTIVE FUNCTIONING: overall mild to moderate impairments with difficulties with mental flexibility and problem solving (complex vs. basic), with the Patient occasionally becoming stuck on irrelevant information provided within the stimuli directly contributing to error responses; questionable insight as detailed with his awareness questionnaire results and information gleaned during informal investigations raising suspicion for anosognosia (impaired self-awareness); no clinical signs of impulsivity; no obvious decline in social interpersonal functioning; no issues with regulation of personal conduct; no apparent emotional blunting. MEMORY: overall mild impairments in memory capacity, with progressively worsening working memory complicating information encoding / retrieval, particularly with more complex tasks. ATTENTION: overall mild impairments, with maintained basic level attention (sustained), with deterioration with more complex stimuli demanding divided and complex attention. VISUOSPATIAL ABILITIES: no visuospatial deficits appreciated. LANGUAGE FUNCTIONING: no functional deficits appreciated; speech is fluent without aphasia, anomia, apraxia, dysarthria; no echolalia; no apparent acalculia or agraphia; reduced orthographic legibility without an element of micrographia. COMPLICATING FACTORS: complicating factors would include possible depression / anxiety associated with her apparent cognitive communication impairments and concomitant perceived disruption in his personal relationships and responsibilities. RESULTS OF THE EVALUATION: The Patient presents with mild cognitive based deficits in the areas of executive functioning, memory, and attention that would benefit from full neurological workup given the absence of a clear etiology of cause. RECOMMENDATIONS: The Patient requires continued skilled speech-language intervention targeting executive functioning and attention changes, with considerations for training and implementation of Time pressure Management (TPM) strategies and formal problem solving strategies (Oivp-Bjnt-Rt-Review - GPDR), with considerations for an errorless learning approach; early development of external compensations to promote the highest level of maintained independent functioning (written information, use of familiar electronic devices, memory notebook with cross out, Notation, and Next activity (CNN) / updating and cleaning routine); and development of a home based cognitive maintenance program to promote optimal maintained levels of cognitive functioning, with goal adjustment as needed following additional neurological workup. FUNCTIONAL OUTCOMES: OUTCOME 1: the Patient will utilize compensatory executive functioning / information processing strategies identified and implemented throughout the intervention cycle (considerations for TPMT, GPDR) to facilitate improved cognitive processing, attention to task, and achievement of the highest level of safe, independent functioning with 100% accuracy over 2 consecutive sessions. OUTCOME 2: the Patient will utilize both internal and external memory devices (note taking, written information, use of familiar electronic devices, memory notebook with CNN / updating and cleaning routine) to facilitate improved accurate independent memory encoding and retrieval during both structured and unstructured therapeutic tasks in 2 out of 3 therapeutic sessions. OUTCOME 3: goal adjustment as needed. Michael Ruggiero M.A., CCC-FARM ASSISTANT, CBIS MBSImP Certified, LSVT Certified [facility] Speech-Language Pathology [email or web address]
--- NOTE | 2019-09-27 18:18 | HP.SP.DC_ITS ---
ST Discharge Summary - Discharged: Discharge: The Patient is a 79 year old male who attended 7 skilled speech- language intervention sessions spanning from 04/13/2019 to 06/28/2019 targeting cognitive communication abilities secondary to persistent memory concerns, with the assessment revealing mild cognitive based deficits in the areas of executive functioning, memory, and attention that would benefit from full neurological workup given the absence of a clear etiology of cause. The Patient participated in intervention targeting executive functioning and attention changes, with considerations for training and implementation of Time pressure Management (TPM) strategies and formal problem solving strategies (Lmwc-Wolb-Nk-Review - GPDR), with considerations for an errorless learning approach; early development of external compensations to promote the highest level of maintained independent functioning (written information, use of familiar electronic devices, memory notebook with cross out, Notation, and Next activity (CNN) / updating and cleaning routine); and development of a home based cognitive maintenance program to promote optimal maintained levels of cognitive functioning. No additional sessions were scheduled following the 06/28/2019 session, with the Patient requesting to discharge from the caseload prior to achievement of all intervention goals via phone. We will advance with discharge from the skilled speech-language pathology caseload at this time per Patent request, though would gladly re-initiate intervention as needed moving forward.
== END 2019-06-28 19:00 | disposition home or self-care (01) ==
LOC: SP 13:30
PROVIDERS: Family Provider Family Medicine; PCP Family Medicine; Visit Provider Family Medicine
DX: R41.3 Other amnesia (principal); R41.841 Cognitive communication deficit
CPT/HCPCS: 92507; 92523

== ENCOUNTER → 2019-07-13 11:46 | Outpatient (CLI) | payer MEDICARE, BC, SELFPAY ==
[2019-04-23 13:02] VITALS: BMI 23.8
[2019-06-23 11:16] VITALS: BMI 24.1
--- NOTE | 2019-07-13 12:04 | CT_ITS ---
STUDY: CT CHEST WITH CONTRAST REASON FOR EXAM: Male, 79 years old. F/U LUNG NODULE RADIATION DOSAGE (If Supplied By Facility): CTDIvol = ( 17.52 ) mGy, DLP = ( 455.94 ) mGycm TECHNIQUE: Transaxial imaging was performed following intravenous administration of IV 100mL Isovue-300. Multiplanar coronal and sagittal images were reformatted. Individualized dose optimization techniques were used for this CT. COMPARISON: 01/15/2019 FINDINGS: Triangular and linear fibrotic scarring of the posterior and lateral right lower lobe is stable since the prior study. Minimal scarring in the left lung base is stable. No discrete pulmonary nodule. Mild central and cylindrical bronchiectasis predominantly involves the mid to lower lung zones also seen in the upper lung zones. There is no demonstrated pleural abnormality. Normal heart and pericardium. Normal mediastinum. Normal hilar regions. Normal enhanced pulmonary arteries. There is atherosclerotic calcification of the aortic arch with tortuosity and elongation of the aortic arch and descending thoracic aorta. There are multi-level degenerative changes of the thoracic spine. There are surgical clips adjacent to the gastroesophageal junction and proximal stomach. There are simple cysts of the upper left kidney partially visualized. CT/Chest WITH Contrast IMPRESSION: 1. Stable enhanced CT Chest examination. 2. Linear fibrotic scarring in the right more than left lung base. 3. Mild bronchiectasis. Electronically Signed: Bladimir Kothari MD (Brooks) at 12:32 EST , Service support ,
[2019-07-13 12:21] LABS: CREATININE FINGERSTICK < 0.6 mg/dL (0.70-1.30); EGFR FINGERSTICK > 60.0000 mL/min (>60)
[2019-07-13 12:31] LABS: Absolute Lymphocyte Count 2.52 X10^3/uL (0.83-4.51); Absolute Neutrophil Count 2.5 X10^3/uL (2.0-7.7); Basophil# 0.05 X10^3/uL; Basophil% 0.9 % (0-1); Eosinophil# 0.08 X10^3/uL; Eosinophils% 1.4 % (0-5); Hematocrit 40.4 % (40-54); Hemoglobin 13.2 g/dL (13.0-16.5); Lymphocyte # 2.52 X10^3/ul (4.0); Lymphocyte % 45.2 % (19-41); Mean Corp Hgb Conc 32.7 g/dL (32-36); Mean Corpuscular Hgb 31.9 pg (27.0-32.0); Mean Corpuscular Volume 97.6 fL (80-94); Mean Platelet Vol. 11.8 fl (6.2-12.0); Monocyte# 0.43 X10^3/uL; Monocyte% 7.7 % (0-10); NRBC Flagged by Analyzer 0 % (0-5); Neutrophil # 2.47 X10^3/uL (2.7-7.7); Neutrophil % 44.4 % (47-70); Platelet Count 161 K/mm3 (150-450); RBC Distribution Width CV 13.3 % (11.6-14.6); RBC Distribution Width SD 47.5 fl (35.1-43.9); Red Blood Count 4.14 M/mm3 (4.6-6.2); White Blood Count 5.6 K/mm3 (4.4-11.0)
[2019-07-13 13:03] LABS: Vitamin B12 484 pg/mL (211-911)
[2019-07-13 13:32] LABS: ALB/GLOB Ratio 1.1 RATIO (0.9-2.4); AST(SGOT) 22 U/L (15-37); Alanine Aminotransfer ALT/SGPT 36 U/L (16-61); Albumin, Serum 3.6 g/dL (3.2-5.0); Alkaline Phosphatase 105 U/L (45-117); Anion Gap 5 (5-15); BUN 23 mg/dL (7-18); Calcium,Total 8.8 mg/dL (8.5-10.1); Chloride 108 mmol/L (98-107); Creatinine, Serum 1.15 mg/dL (0.70-1.30); EST Glomerular Filtration Rate 65 mL/min (>60); Est Glom Filt Rate - Afr Amer 79 mL/min (>60); Ferritin 24 ng/mL (26-388); Globulin 3.4 g/dL (2.2-4.2); Glucose 94 mg/dL (74-106); Iron 72 ug/dL (65-175); Iron Binding Capacity,Total 344 ug/dL (250-450); PERCENT IRON SATURATION 20.9 % (15.0-55.0); Potassium 4.5 mmol/L (3.5-5.1); Sodium Level 143 mmol/L (136-145)
[2019-07-16 13:09] LABS: Carcinoembryonic Antigen 1.9 ng/mL (0.0-4.7)
== END ==
PROVIDERS: Family Provider Family Medicine; PCP Family Medicine; Referring Provider Internal Medicine Hematology & Oncology; Visit Provider Internal Medicine Hematology & Oncology
DX: D50.9 Iron deficiency anemia, unspecified (principal); R97.20 Elevated prostate specific antigen [PSA]; R91.1 Solitary pulmonary nodule; R93.89 Abnormal findings on diagnostic imaging of other specified body structures; Z85.038 Personal history of other malignant neoplasm of large intestine
CPT/HCPCS: 36415; 71260; 80053; 82378; 82607; 82728; 82746; 83540; 83550; 85025; Q9967

== ENCOUNTER → 2019-08-10 15:32 | Outpatient (CLI) | payer MEDICARE, BC, SELFPAY ==
[2019-07-30 14:16] VITALS: BMI 24.3
== END ==
PROVIDERS: PCP Family Medicine; Referring Provider Urology; Visit Provider Urology
DX: R97.20 Elevated prostate specific antigen [PSA] (principal)
CPT/HCPCS: 36415; 84153

== ENCOUNTER 2019-10-02 07:34 | Day surgery (SDC) | payer MEDICARE, BC, SELFPAY ==
--- NOTE | 2019-09-10 02:44 | HP_ITS ---
Intake Vital Signs 09/10/19 Height 6 ft 3 in 09/10/19 Weight: 192 lb 09/10/19 BP 104/58 L 09/10/19 Blood Pressure Location Rt brachial 09/10/19 Position Sitting 09/10/19 Respiration 16 09/10/19 Pulse 57 L 09/10/19 Pulse Source Monitor 09/10/19 Temp 98.5 F 09/10/19 Temp Source Oral 09/10/19 Pulse Oximetry (%) 97 09/10/19 Oxygen Delivery Method room air 09/10/19 BMI 24.3 Intake Visit Reasons: Repeat Cscope Consult Chief Complaint: VENOFER Rn Corrections Required: No Is patient in pain?: No Allergies No Known Allergies Allergy (Verified 09/10/19 14:29) Medications famotidine 20 mg tablet 20 mg PO DAILY 06/23/19 [History Confirmed 09/10/19] aloe vera 1 applic TOPICAL DAILY PRN g 09/10/19 [History Confirmed 09/10/19] coconut oil 1,000 mg capsule mg PO 09/10/19 [History] ginkgo biloba leaf extract 60 mg capsule 60 mg PO DAILY cap 09/10/19 [History Confirmed 09/10/19] multivitamin 1 tab PO DAILY 09/10/19 [History Confirmed 09/10/19] omega-3 fatty acids 1,000 mg capsule 1,000 mg PO DAILY 09/10/19 [History Confirmed 09/10/19] saw palmetto 160 mg capsule 160 mg PO DAILY cap 09/10/19 [History Confirmed 09/10/19] turmeric root extract 500 mg capsule 500 mg PO BID 09/10/19 [History Confirmed 09/10/19] [facility] Medical History Colon cancer (Chronic) Abnormal chest CT (Acute) Helicobacter pylori gastritis (Acute) Personal history of peptic ulcer disease (Acute) Iron deficiency anemia (Chronic) Duodenal ulcer hemorrhage (Acute) Dupuytren contracture (Acute) H. pylori infection (Acute ~09/2018) Personal history of colon cancer (Acute ~09/2018) Poor short term memory (Acute) Rectal bleed (Acute) history of internal bleeding (Acute) history of polio (Acute) Surgical History History of partial gastrectomy (Acute) History of colectomy (Acute ~09/2018) History of colonoscopy (Acute ~09/2018) History of esophagogastroduodenoscopy (EGD) (Acute ~09/2018) history excision basal cell carcinoma left layne (Acute) history excision submaxillary salivary gland (Acute) Family History Mother Brain cancer Father CVA (cerebral vascular accident) Social History (Updated 09/10/19 @ 14:[address] Abhishek Luis MD) Smoking Status: Never smoker alcohol intake: never substance use type: does not use HPI HPI HPI: CHICHO HOLDEN, is a 79 M who presents to the office today for surgical follow-up status post laparoscopic sigmoid colectomy. He is now 1 year out from surgery. He sees Dr. Mayorga for his hematology oncology care. He is referred back for his one-year follow-up colonoscopy visit. He denies bright red blood per rectum or melena. He does have certain food intolerances with increased rumbling and grumbling especially when he eats sauerkraut. His weight and energy level is been stable. No specific complaints. His previous history as noted below. It is of note that the patient sometimes gets up at night to urinate and also defecates at that time. He denies any fecal incontinence October 10, 2018 he underwent a laparoscopic sigmoid colectomy by Dr. uLis which revealed: MICROSCOPIC DIAGNOSIS A. Sigmoid colon, segmental colectomy: Invasive moderately differentiated adenocarcinoma. See cancer checklist below. B. Sigmoid colon donut, excision: Fragments of colonic tissue, negative for malignancy. C. Rectal donut, excision: Fragments of colonic tissue, negative for malignancy. AM:dick 10/12/18 COMMENT COLON CANCER SUMMARY: Specimen sigmoid colon Procedure sigmoidectomy Tumor site sigmoid colon Tumor size 2.8 x 2.6 x 1.3 Macroscopic tumor perforation not identified Histologic type - adenocarcinoma Histologic grade low grade (moderately differentiated) Microscopic tumor extension tumor invades focally into the subserosal fat. Tumor is located 5.5 cm from its closest (stapled) margin of excision. Margins: Proximal margin uninvolved by invasive carcinoma. Distal margin - uninvolved by invasive carcinoma. Circumferential margin - uninvolved by invasive carcinoma. Treatment effect unknown Lymph-Vascular invasion not identified Perineural invasion not identified Tumor deposits not identified Lymph nodes: Number of lymph nodes examined - 31 Number of lymph nodes involved - 0 Distant metastasis - unknown Ancillary studies: See microsatellite instability study by IHC ([id number]) for complete details. Negative (no loss of mismatch protein; no microsatellite instability detected). PATHOLOGIC STAGE: pT3 N0 Mx Stage IIA HPI HPI Surgical H&P: Yes HPI: CHICHO HOLDEN, is a 79 M who presents to the office today for ROS General General: Yes colon cancer; no weight change, appetite, fatigue, breast cancer or weakness HEENT HEENT: No difficulty swallowing, eye injury, eye surgery, swollen glands or hoarseness Endo Endocrine: No thyroid disease, diabetes mellitus, thyroid cancer, Hair loss, heat intolerance or cold intolerance Skin Skin: No rash or changing moles Musc Musculoskeletal: No back problems, arthritis, rheumatoid arthritis, gout or joint pain Cardio Cardiovascular: Yes murmur; no pacemaker, heart disease, atrial fibrillation, high blood pressure, heart attack, heart stent, palpitations, shortness of breat with exertion or chest pain Psych Psychiatric: No depression, anxiety or hearing voices Resp Respiratory: No shortness of breath, No sleep apnea, No cough, No COPD, No asthma, No emphysema, No wheezing Gastro Gastrointestinal: No abdominal pain, No nausea or vomiting, No diarrhea, No constipation, No blood in stool, No acid reflux, No hemorrhoids, No ulcers, No gallbladder problem, No black,tarry stools [place] Hematologic: No blood thinners, No blood disorders, No bleeding, Yes anemia (had 3 iron transfusions in Aug 2019- anemia has improved), Yes blood clots (hx of DVT of lower extremity in approx 1964) Neuro Neurologic: No weakness Exam Const General: cooperative, healthy appearing, comfortable, no acute distress Nutritional Appearance: average body habitus Orientation: alert, awake Chest Chest palpation & inspection: normal inspection of the chest Resp Effort & Inspection: normal respiratory effort Auscultation: clear to auscultation bilaterally Cardio Rate: regular rate Rhythm: regular rhythm Heart Sounds: murmur GI Palpation: soft, no hepatosplenomegaly Auscultation: normal bowel sounds Other: Well-healed laparoscopic incisions and well-healed Pfannenstiel incision Neuro General: alert, awake Extrem General: no calf tenderness bilaterally Assessment & Plan Problems 1. Personal history of colon cancer, stage II Z85.038 Plan 79-year-old gentleman with a personal history of stage IIa colon cancer. He is now 1 year out status post laparoscopic sigmoid colectomy. He is currently asymptomatic. Laboratory including CEA level obtained by Dr. Mayorga have been normal. July 13, 2019 hemoglobin 13.2 and hematocrit 40.4 and BUN 23 and creatinine 1.15 with normal liver function tests and CEA 1.9 I proposed with the patient a colonoscopy with possible biopsy or polypectomy as indicated. He is aware of the technique, benefit, risk, alternatives. We will schedule and proceed at his discretion. Cc: Dr. Mayorga and Dr. Isa Luis M.D., F.A.C.S. Coding Level of Care Code Off vis,est,level 3 Diagnoses Personal history of colon cancer, stage II Z85.038 09/10/19 1449 <Electronically signed by Abhishek hernandez MD> Date _ Abhishek Luis MD I have re-examined the patient. There are no clinical changes since date of exam.
[2019-09-10 14:28] VITALS: BMI 24.0
[2019-10-02 07:57] VITALS: BP 115/65; PULSE 58; RESP 15; TEMP 36.6; O2SAT 100; BMI 23.7
[2019-10-02] MEDS: Lactated Ringers 1,000 ML 100 ML IV (08:11)
[2019-10-02 08:55] VITALS: BP 105/61; BP 115/65; PULSE 52; RESP 16; TEMP 36.3; O2SAT 97
--- NOTE | 2019-10-02 08:58 | OP.CCLET_ITS ---
10/02/2019 [address] [place] [address] Re : Colonoscopy procedure for Bryan Arthur Dear Dr. Mayorga This procedure was performed on Wednesday, October 02, 2019. My impressions and recommendations are as follows: Impressions : - Preparation of the colon was fair. - Hemorrhoids found on perianal exam. - Patent end-to-end colo-colonic anastomosis, characterized by healthy appearing mucosa. 18cm from anus - Diverticulosis in the sigmoid colon. - The examination was otherwise normal. - No specimens collected. Recommendations : - Discharge patient to home. - Resume previous diet. - Continue present medications. - Repeat colonoscopy in 3 years for surveillance. Bowel prep was only fair but pt 79 with mild dementia. My findings are described in the full procedure note, which is enclosed. If I can be of further assistance, please feel free to contact me at Doctor phone number(s): Work: . Sincerely, Abhishek Luis MD 10/02/2019 8:58:05 AM This report has been signed electronically.
--- NOTE | 2019-10-02 08:58 | OP.COLON_ITS ---
Patient Name: Bryan Arthur Procedure Date: 10/02/2019 8:28 AM Date of : 1940 Age: 79 Procedure: Colonoscopy Indications: High risk colon cancer surveillance: Personal history of colon cancer Providers: Abhishek Luis MD Referring MD: Mk Moss Md Medicines: See the Anesthesia note for documentation of the administered medications Patient Profile: Last Colonoscopy: 1 year ago. Complications: No immediate complications. Procedure: Pre-Anesthesia Assessment: - Prior to the procedure, a History and Physical was performed, and patient medications and allergies were reviewed. The patient's tolerance of previous anesthesia was also reviewed. The risks and benefits of the procedure and the sedation options and risks were discussed with the patient. All questions were answered, and informed consent was obtained. Prior Anticoagulants: The patient has taken no previous anticoagulant or antiplatelet agents. ASA Grade Assessment: II - A patient with mild systemic disease. After reviewing the risks and benefits, the patient was deemed in satisfactory condition to undergo the procedure. After I obtained informed consent, the scope was passed under direct vision. Throughout the procedure, the patient's blood pressure, pulse, and oxygen saturations were monitored continuously. The colonoscope was introduced through the anus and advanced to the cecum, identified by appendiceal orifice and ileocecal valve. The colonoscopy was performed without difficulty. The patient tolerated the procedure well. The quality of the bowel preparation was fair. The ileocecal valve and the appendiceal orifice were photographed. Scope In: 8:36:02 AM Scope Withdrawal Time 0 hours 8 minutes 40 seconds Scope Out: 8:49:36 AM Total Procedure Duration Time 0 hours 13 minutes 34 seconds Findings: Hemorrhoids were found on perianal exam. There was evidence of a prior end-to-end colo-colonic anastomosis in the recto-sigmoid colon. This was patent and was characterized by healthy appearing mucosa. Scattered diverticula were found in the sigmoid colon. The exam was otherwise without abnormality. Impression: - Preparation of the colon was fair. - Hemorrhoids found on perianal exam. - Patent end-to-end colo-colonic anastomosis, characterized by healthy appearing mucosa. 18cm from anus - Diverticulosis in the sigmoid colon. - The examination was otherwise normal. - No specimens collected. Recommendation: - Discharge patient to home. - Resume previous diet. - Continue present medications. - Repeat colonoscopy in 3 years for surveillance. Bowel prep was only fair but pt 79 with mild dementia. Procedure Code(s): --- Professional --- G0105, Colorectal cancer screening; colonoscopy on individual at high risk Diagnosis Code(s): --- Professional --- Z85.038, Personal history of other malignant neoplasm of large intestine K64.9, Unspecified hemorrhoids Z98.0, Intestinal bypass and anastomosis status K57.30, Diverticulosis of large intestine without perforation or abscess without bleeding CPT copyright 2017 [employer]. All rights reserved. The codes documented in this report are preliminary and upon nursery laborer review may be revised to meet current compliance requirements. Abhishek Luis MD 10/02/2019 8:58:05 AM This report has been signed electronically. Number of Addenda: 0 Note Initiated On: 10/02/2019 8:28 AM
[2019-10-02 09:00] VITALS: BP 115/63; BP 115/65; PULSE 54; RESP 18; O2SAT 97
[2019-10-02 09:05] VITALS: BP 111/62; BP 115/65; PULSE 55; RESP 18; O2SAT 99
[2019-10-02 09:10] VITALS: BP 115/65; BP 133/69; PULSE 54; RESP 18; TEMP 36.3; O2SAT 97
[2019-10-02 09:42] VITALS: BP 115/65
== END 2019-10-02 09:43 | disposition home or self-care (01) ==
LOC: EN 07:35 → AC 07:45
PROVIDERS: PCP Family Medicine; Referring Provider Family Medicine; Visit Provider Surgery
PROC: 0DJD8ZZ Inspection of Lower Intestinal Tract, Via Natural or Artificial Opening Endoscopic (ICD-10-PCS; CPT 45378; principal; 2019-10-02 08:25)
DX: Z12.11 Encounter for screening for malignant neoplasm of colon (principal); Z85.038 Personal history of other malignant neoplasm of large intestine; K64.9 Unspecified hemorrhoids; K57.30 Diverticulosis of large intestine without perforation or abscess without bleeding; Z98.0 Intestinal bypass and anastomosis status; D50.9 Iron deficiency anemia, unspecified; Z86.12 Personal history of poliomyelitis; Z90.49 Acquired absence of other specified parts of digestive tract
CPT/HCPCS: G0105; J7120

== ENCOUNTER → 2020-04-08 07:56 | Outpatient (CLI) | payer MEDICARE, BC, SELFPAY ==
[2019-09-10 14:28] VITALS: BMI 24.0
[2020-01-09 13:57] VITALS: BMI 24.8
--- NOTE | 2020-04-08 08:08 | ECHOD_ITS ---
Reason For Study: Ao root dilatation Procedure This was a 2D Doppler, Color Flow transthoracic echocardiogram. The study was technically difficult. Exam performed in department. Left Ventricle Normal LV size. Left ventricular systolic function is normal. The estimated ejection fraction is 60 %. No evidence for diastolic dysfunction. No regional wall motion abnormalities noted. Right Ventricle Normal RV size. Normal systolic function. Atria Normal left atrium. Normal right atrium. No doppler evidence for ASD. Mitral Valve There is no mitral annular calcification. Normal mitral valve. Trivial mitral valve insufficiency. Tricuspid Valve Normal tricuspid valve. Trivial tricuspid valve insufficiency. Right ventricular systolic pressure estimated to be 29 mmHg. Aortic Valve Bicuspid aortic valve. Mild focal aortic valve calcification. Mild (1+) aortic valve insufficiency. Pulmonic Valve The pulmonic valve is not well visualized. Great Vessels The aortic root is not well visualized. Pericardium/Pleural No pericardial effusion. MMode/2D Measurements & Calculations LVIDd: 4.0 cm IVSd: 1.5 cm LVOT diam: 2.0 cm LVIDs: 2.3 cm LVPWd: 0.94 cm LVOT area: 3.2 cm2 RVDd: 3.9 cm FS: 43.4 % LAV(MOD-bp): 45.3 ml LA A4 area: 13.9 cm2 LA dimension(2D): 3.3 cm LAV(MOD-bp) Indexed: 21.1 ml/m2 LAV(MOD-sp2): 64.7 ml LAV(MOD-sp4): 33.9 ml RA A4 area: 16.1 cm2 Doppler Measurements & Calculations MV E max kj: 77.1 cm/sec Lat Peak E' Kj: 11.6 cm/sec Med Peak E' Kj: 8.1 cm/sec MV A max kj: 88.8 cm/sec E/E' lat: 6.6 E/E' med: 9.5 MV E/A: 0.87 Ao V2 max: 132.0 cm/sec LV V1 max: 83.8 cm/sec PA V2 max: 107.7 cm/sec Ao max P.0 mmHg LV V1 max P.8 mmHg ALISON(V,D): 2.0 cm2 TR max kj: 253.1 cm/sec TR max P.8 mmHg Interpretation Summary The study was technically difficult. Left ventricular systolic function is normal. The estimated ejection fraction is 60 %. Trivial mitral valve insufficiency. Trivial tricuspid valve insufficiency. Bicuspid aortic valve. Mild focal aortic valve calcification. Mild (1+) aortic valve insufficiency. Right ventricular systolic pressure estimated to be 29 mmHg. No evidence for diastolic dysfunction. The aortic root is not well visualized. Comment: Consider further evaluation of the thoracic aorta with chest CT scan (IV contrast) if clinically indicated. Ordering Physician: Mk Moss Referring Physician: Mk Moss Performed By: Mira Castillo KENY
--- NOTE | 2020-04-08 08:43 | US_ITS ---
STUDY: THYROID ULTRASOUND REASON FOR EXAM: Male, 80 years old. Nodules TECHNIQUE: Ultrasound evaluation of the thyroid was performed with real-time and static travis-scale imaging. COMPARISON: None. FINDINGS: RIGHT LOBE: The right lobe of the thyroid gland is mildly enlarged and measures 5.2 cm x 2 cm x 1.5 cm. There is a homogeneous echotexture. There is a 7 mm x 5 mm x 4 mm solid/cystic nodule in the upper pole. There are nodular vascularity is seen. LEFT LOBE: The left lobe of the thyroid gland measures 4.5 cm x 1.1 cm x 1.4 cm. There is a homogeneous echotexture. There is a 6 mm x 4 mm x 4 mm solid/cystic nodule in the lower pole. Perinephric nodular flow is seen. ISTHMUS: The isthmus measures 3.0 mm. The regional lymph nodes are normal. US/Thyroid IMPRESSION: Subcentimeter cystic/solid nodule seen in both lobes as described. Electronically Signed: Sharad Mendiola, at 12:32 EDT , Service support ,
== END ==
PROVIDERS: PCP Family Medicine; Referring Provider Family Medicine; Visit Provider Family Medicine
DX: E04.1 Nontoxic single thyroid nodule (principal); I35.1 Nonrheumatic aortic (valve) insufficiency; I77.810 Thoracic aortic ectasia
CPT/HCPCS: 76536; 93306

== ENCOUNTER → 2020-04-14 15:44 | Outpatient (CLI) | payer MEDICARE, BC, SELFPAY ==
[2020-01-09 13:57] VITALS: BMI 24.8
--- NOTE | 2020-04-14 15:44 | CT_ITS ---
HISTORY: COLON CANCER, RISING CEA, SUSPECT RECURRENCE TECHNIQUE: CT images of the chest were obtained with 100mL Isovue-300 IV contrast. Number of images including paperwork: [phone]. A radiation dose optimization technique was used for this scan. COMPARISON: 07/13/2019, 10/04/2018 FINDINGS: VASCULATURE: Vascular tortuosity. HEART/PERICARDIUM: Unremarkable. MEDIASTINUM: Unremarkable. ADENOPATHY: No pathologic appearing adenopathy. THYROID: Unremarkable visualized portions. LUNG PARENCHYMA: No consolidation or mass. Right lower lobe scarring and mild bilateral apical scarring, unchanged. PLEURAL SPACES: Unremarkable. UPPER ABDOMEN: Refer to CT abdomen report OSSEOUS AND SOFT TISSUE STRUCTURES: No acute skeletal findings. Degenerative changes. DEVICES: None. CT/Chest WITH Contrast IMPRESSION: No evidence of metastatic disease in the chest. Individualized dose optimization techniques were used for this CT. at 0706 Reported and signed by: Malgorzata Cho MD Electronically Signed: Malgorzata Cho MD at 7:06 EDT Tel , Service support ,
--- NOTE | 2020-04-14 15:55 | CT_ITS ---
HISTORY: COLON CANCER, RISING CEA, SUSPECT RECURRENCE ADDITIONAL HISTORY: None provided. EXAMINATION/TECHNIQUE: CT Abdomen And Pelvis W/ Contrast Injection CONTRAST: IV 100mL Isovue-300 IV contrast. Enteric contrast was not given. A radiation dose optimization technique was used for this scan. Number of images including paperwork: [phone] COMPARISON: 09/28/2018 FINDINGS: LOWER THORAX: Hypodense lesion in the medial right lobe of the liver, series 3 image 32 measuring 2.1 x 2.3 cm, new and concerning for metastasis. LIVER: No concerning focal lesion. GALLBLADDER: No radiopaque calculi. BILE DUCTS: No significant biliary dilatation. SPLEEN: Unremarkable. PANCREAS: Unremarkable. ADRENAL GLANDS: Unremarkable. KIDNEYS/URETERS: Multiple bilateral renal cysts for which no follow-up is warranted per consensus guidelines. 2 mm nonobstructing left renal calculus. BOWEL: Postoperative changes of the GE junction. Anastomosis in the rectosigmoid region. No bowel obstruction. No significant bowel wall thickening. No localized inflammation. Moderate amount of colonic stool. APPENDIX: No evidence of appendicitis. FREE FLUID: No significant free fluid. FREE AIR: None. LYMPH NODES: No pathologic appearing adenopathy. PERITONEUM, RETROPERITONEUM AND MESENTERY: Otherwise unremarkable. VASCULATURE: Atherosclerotic calcification. Circumaortic left renal vein. PELVIS: Unremarkable bladder. Enlarged prostate. ABDOMINAL WALL: Unremarkable. OSSEOUS AND SOFT TISSUE STRUCTURES: No acute skeletal findings. Degenerative changes. CT/Abdomen/Pelvis WITH Contrast IMPRESSION: New right lobe liver lesion concerning for metastasis. Individualized dose optimization techniques were used for this CT. at 0701 Reported and signed by: Malgorzaat Cho MD Electronically Signed: Malgorzata Cho MD at 7:01 EDT Tel , Service support ,
[2020-04-14 15:56] LABS: EGFR FINGERSTICK > 60.0000 mL/min (>60)
== END ==
PROVIDERS: PCP Family Medicine; Referring Provider Internal Medicine Hematology & Oncology; Visit Provider Internal Medicine Hematology & Oncology
DX: C18.9 Malignant neoplasm of colon, unspecified (principal); R97.0 Elevated carcinoembryonic antigen [CEA]; Z85.038 Personal history of other malignant neoplasm of large intestine
CPT/HCPCS: 71260; 74177; Q9967

== ENCOUNTER → 2020-04-29 08:51 | Outpatient (CLI) | payer MEDICARE, BC, SELFPAY ==
[2020-04-17 13:08] VITALS: BMI 24.7
[2020-04-29] VITALS (9 sets, daily range): BP systolic 115–148; BP diastolic 49–70; PULSE 52–58; RESP 12–18; TEMP 37; O2SAT 98–100; BMI 24.7
--- NOTE | 2020-04-29 | ASPIGT_PTH ---
PATIENT: CHICHO HOLDEN LOC: CT U#:[id number] AGE/SX: 85/M ROOM: RE04/29/[address]: Dr. Ave Mayorga MD : 1940 BED: DIS: SPEC #: [id number] RECD: 04/29/20 10:00 STATUS: ALTAGRACIA MARIANO #: [id number] ANDREZ: 04/29/20 00:[address]: Ave Mayorga DEPT: SURGICAL PATHOLOGY RECD BY: Tahmina Reza ENTERED: 04/29/20 12:25 SP TYPE: ASP RAD OTHR DR: Dr. Mk Moss MD Tissues: Liver, NOS Procedures: FNA Specimen Adequacy Special Stain Group II Surgery Specimen Level V Imprint (control) HEADER OPERATION: CT-guided liver biopsy PRE-OP DIAGNOSIS: Liver mass TISSUE SUBMITTED: Liver mass MICROSCOPIC DIAGNOSIS Liver, CT-guided needle core biopsy: Metastatic adenocarcinoma consistent with colonic primary. See comment. AM:dick 04/30/20 COMMENT The specimen is evaluated at the time of biopsy by Dr. Nicole. Immediate Evaluation: Pass 1 - Positive for malignant cells. Non-small cell carcinoma. Pass 2 - Positive for malignant cells. Non-small cell carcinoma. Immunohistochemistry ([id number]) supports the above diagnosis. Case has been reviewed in consultation with Dr. Xavier who concurs with the above diagnosis. IDC:SJ MICROSCOPIC DESCRIPTION Slides are reviewed. GROSS DESCRIPTION Received is one container labeled with the patient's name and not further designated. The specimen consists of three cores of light gaston soft tissue. Each core averages 1 cm in length and <0.1 cm in diameter. The specimen is totally submitted in one cassette. / AM:dick 04/29/20 TC:0 CPT: 84289,64929,94844 ADDENDUM ADDENDUM ADDENDUM ADDENDUM ADDENDUM ADDENDUM ADDENDUM ADDENDUM ADDENDUM ADDENDUM 05/28/2022 09:25 ADDENDUM 05/28/2022 09:25 ADDENDUM 05/28/2022 09:25 ADDENDUM 05/28/2022 09:25 ADDENDUM 05/28/2022 09:25 This addendum is added to incorporate an outside pathology consultation report. The case was examined at [facility] (#[id number]) and the following diagnosis was rendered. Liver, CT-guided needle core biopsy: Adenocarcinoma consistent with metastasis from colonic primary. Please see complete above mentioned consultation report in EMR
--- NOTE | 2020-04-29 | IMM_PTH ---
PATIENT: CHICHO HOLDEN LOC: CT U#:[id number] AGE/SX: 85/M ROOM: RE04/29/[address]: Dr. Ave Mayorga MD : 1940 BED: DIS: SPEC #: [id number] RECD: 04/30/20 12:52 STATUS: ALTAGRACIA REQ #: [id number] ANDREZ: 04/29/20 00:[address]: Ave Mayorga DEPT: IMMUNOHISTOCHEMISTRY RECD BY: Melissa Calvo ENTERED: 04/30/20 12:53 SP TYPE: IMMUNO OTHR DR: Dr. Mk Moss MD Tissues: Liver, NOS Procedures: CK20 (add) CK7 (add) ANDERSON-2 (add) KI-67 (add) P53 (add) Pankeratin (initial) CDX2 (add) PSAP (add) PHYSICIAN & INSTITUTION [place] [id number] SPECIMEN INFORMATION: Tissue Source: Liver mass Clinical Info: Liver mass Specimen Number: [id number] CPT code: 90835, 44074 x7 METHODOLOGY: Deparaffinized sections of prefer/formalin-fixed tissue or PAP/DQ stained slides are incubated with monoclonal/polyclonal antibodies/oligonucleotide probes. Localization is made via biotin free immunoperoxidase method. Appropriate controls are performed and reacted as expected. Results on target cell population are indicated in the following table: RESULTS: ANTIBODY / CLONE RESULT AE1-3 (AE1/AE3/PCK26) positive CK7 (OV-TL12/30) negative CK20 (KS20.8) positive ANDERSON-2 (SP21) positive CDX2 ([id number]) positive PSAP (PASE/4LJ) negative P53 (DO-7) positive, 2% Ki-67 (30-9) positive, 75% These tests were developed and their performance characteristics determined by [facility]. They may not have been cleared or approved by the U.S. Food and Drug Administration. The FDA has determined that such clearance or approval is not necessary. The above immunohistochemical/dualISH markers are ordered and reviewed by the Pathologist. INTERPRETATION: Liver mass, CT-guided biopsy: Metastatic adenocarcinoma consistent with colon primary. AM:dick 05/01/20
[2020-04-29 09:23] LABS: Absolute Lymphocyte Count 2.05 X10^3/uL (0.83-4.51); Absolute Neutrophil Count 1.6 X10^3/uL (2.0-7.7); Basophil# 0.04 X10^3/uL; Eosinophil# 0.07 X10^3/uL; Eosinophils% 1.7 % (0-5); Hematocrit 40.2 % (40-54); Lymphocyte # 2.05 X10^3/ul (4.0); Lymphocyte % 49.9 % (19-41); Mean Corp Hgb Conc 32.3 g/dL (32-36); Mean Corpuscular Hgb 31.5 pg (27.0-32.0); Mean Corpuscular Volume 97.3 fL (80-94); Mean Platelet Vol. 11.6 fl (6.2-12.0); Monocyte# 0.31 X10^3/uL; Monocyte% 7.5 % (0-10); NRBC Flagged by Analyzer 0 % (0-5); Neutrophil # 1.64 X10^3/uL (2.7-7.7); Neutrophil % 39.9 % (47-70); Platelet Count 152 K/mm3 (150-450); RBC Distribution Width CV 12.8 % (11.6-14.6); RBC Distribution Width SD 46.4 fl (35.1-43.9); Red Blood Count 4.13 M/mm3 (4.6-6.2); White Blood Count 4.1 K/mm3 (4.4-11.0)
[2020-04-29 09:29] LABS: International Normalized Ratio 1.1; Prothrombin Time (Protime)PT. 13.7 SECONDS (11.7-14.9)
[2020-04-29 09:30] LABS: Partial Thromboplast Time 25.6 Seconds (24.1-36.2)
--- NOTE | 2020-04-29 10:00 | CT_ITS ---
PROCEDURE: CT DIRECTED CORE LIVER BIOPSY INDICATION: Male, 80 years old. COLON CANCER WITH METS. LIVER BIOPSY PHYSICIAN: Dr. CLEOPATRA Harvey CONSENT: Written informed consent was obtained having explained the risks, benefits and alternatives in detail with the patient who accepted the risks and agreed to proceed. Laboratory review and clinical assessment was performed. CONSCIOUS SEDATION PROTOCOL: The Drugs used were: 1 mg Versed, IV., and 25 mcg Fentanyl, IV. The sedation time was: 43 minutes. Conscious sedation was started at 10:02 AM and terminated at 10:45 AM. The conscious sedation protocol was independently monitored. RADIATION DOSAGE (If Supplied By Facility): CTDIvol = ( 12 ) mGy, DLP = ( 1383.45 ) mGycm Individualized dose optimization techniques were used for this CT. TECHNIQUE: Using CT image guidance with image documentation, a suitable location in the right lobe of the liver was identified. Using a right lateral approach, puncture of the liver was uneventful with an 18-gauge core needle system. Three 18-gauge core samples were obtained, and submitted in formalin to the pathologist for further assessment. Followup CT scan revealed no distinct sequelae. CT/Biopsy/Inj or Needle Placement IMPRESSION: 1. CT directed core needle biopsy of the liver, using CT image guidance with image documentation as described. 2. Conscious Sedation protocol utilized with independent monitoring. Electronically Signed: Sharad Mendiola, at 11:21 EDT , Service support ,
[2020-04-29] MEDS: Midazolam 2 MG/2 ML Syringe IV (10:02)
[2020-04-29] MEDS: fentaNYL 100 MCG/2 ML Ampul IV (10:02)
[2020-04-30 12:07] LABS: Carcinoembryonic Antigen 27.2 ng/mL (0.0-4.7)
== END ==
PROVIDERS: PCP Family Medicine; Referring Provider Internal Medicine Hematology & Oncology; Visit Provider Internal Medicine Hematology & Oncology
DX: C18.9 Malignant neoplasm of colon, unspecified (principal); C78.7 Secondary malignant neoplasm of liver and intrahepatic bile duct; Z85.038 Personal history of other malignant neoplasm of large intestine
CPT/HCPCS: 47000; 36415; 77012; 82378; 85025; 85610; 85730; 88172; 88305; 88307; 88313; 88341; 88342; 99155; 99156; 99157; J7040

== ENCOUNTER → 2020-07-21 13:34 | Outpatient (CLI) | payer MEDICARE, BC, SELFPAY ==
[2020-06-26 09:19] VITALS: BMI 24.1
[2020-06-27 13:16] VITALS: BMI 24.1
--- NOTE | 2020-07-21 13:36 | CT_ITS ---
STUDY: CT CHEST WITH CONTRAST REASON FOR EXAM: Male, 80 years old. METASTATIC COLON CANCER TO LIVER S/P LIVER RESECT RADIATION DOSAGE (If Supplied By Facility): CTDIvol = ( 14.18 ) mGy, DLP = ( 1171.86 ) mGycm TECHNIQUE: Transaxial imaging was performed following intravenous administration of IV 100mL Isovue-370. Multiplanar coronal and sagittal images were reformatted. Individualized dose optimization techniques were used for this CT. COMPARISON: Comparison is made with prior study dated 04/14/2020. FINDINGS: Stable mild bilateral apical scarring slightly more prominent on the right side. Stable linear density in the posterior lateral segment of the right lower lobe. Stable 1.4 cm x 1.4 cm pleural-based nodule in the posterior medial aspect of the right lower lobe. This most likely represents scarring. There is no demonstrated pleural abnormality. Normal heart and pericardium. Normal mediastinum. Normal hilar regions. Normal enhanced pulmonary arteries. Normal aorta arch and descending thoracic aorta. There are multi-level degenerative changes of the thoracic spine. Surgical clips are seen at the gastroesophageal junction. Fatty infiltration of the liver. CT/Chest WITH Contrast IMPRESSION: Stable scarring at the lung apices as well as in the right lower lobe with a pleural based nodular density in the right lower lobe. Electronically Signed: Sharad Mendiola, at 8:53 EST , Service support ,
[2020-07-21 13:59] LABS: Absolute Lymphocyte Count 3.02 X10^3/uL (0.83-4.51); Absolute Neutrophil Count 2.7 X10^3/uL (2.0-7.7); Basophil# 0.05 X10^3/uL; Basophil% 0.8 % (0-1); Eosinophil# 0.09 X10^3/uL; Eosinophils% 1.4 % (0-5); Hematocrit 39.4 % (40-54); Hemoglobin 12.8 g/dL (13.0-16.5); Lymphocyte # 3.02 X10^3/ul (4.0); Lymphocyte % 47.5 % (19-41); Mean Corp Hgb Conc 32.5 g/dL (32-36); Mean Corpuscular Hgb 32.5 pg (27.0-32.0); Mean Platelet Vol. 10.5 fl (6.2-12.0); Monocyte# 0.48 X10^3/uL; Monocyte% 7.5 % (0-10); NRBC Flagged by Analyzer 0 % (0-5); Neutrophil # 2.71 X10^3/uL (2.7-7.7); Neutrophil % 42.6 % (47-70); Platelet Count 173 K/mm3 (150-450); RBC Distribution Width CV 13.2 % (11.6-14.6); RBC Distribution Width SD 48.2 fl (35.1-43.9); Red Blood Count 3.94 M/mm3 (4.6-6.2); White Blood Count 6.4 K/mm3 (4.4-11.0)
[2020-07-21 14:16] LABS: AST(SGOT) 15 U/L (15-37); Alanine Aminotransfer ALT/SGPT 28 U/L (16-61); Albumin, Serum 3.6 g/dL (3.2-5.0); Alkaline Phosphatase 128 U/L (45-117); Anion Gap 5 (5-15); BUN 18 mg/dL (7-18); BUN/Creat Ratio 16.4 RATIO (10-20); Calcium,Total 8.6 mg/dL (8.5-10.1); Chloride 106 mmol/L (98-107); EST Glomerular Filtration Rate 69 mL/min (>60); Est Glom Filt Rate - Afr Amer 83 mL/min (>60); Globulin 3.5 g/dL (2.2-4.2); Glucose 92 mg/dL (74-106); Potassium 4.2 mmol/L (3.5-5.1); Protein, Total 7.1 g/dL (6.4-8.2); Sodium Level 141 mmol/L (136-145)
--- NOTE | 2020-07-21 14:35 | CT_ITS ---
STUDY: CT ABDOMEN AND PELVIS WITH CONTRAST REASON FOR EXAM: Male, 80 years old. COLON CA RADIATION DOSAGE (If Supplied By Facility): CTDIvol = ( 14.18 ) mGy, DLP = ( 1171.86 ) mGycm TECHNIQUE: Transaxial images were obtained from the dome of the diaphragm to the symphysis pubis without oral contrast. IV 100mL Isovue-370 was administered. Sagittal and coronal images were reconstructed. Individualized dose optimization techniques were used for this CT. COMPARISON: Comparison is made with prior study dated 04/14/2020. FINDINGS: Stable linear scarring and pleural-based nodule in the posterior-lateral segment of the right lower lobe. Coronary artery calcification. There is decreased attenuation of the liver consistent with steatosis. Surgical clips are seen in the medial central portion of the right lobe of the liver. There is a 2.5 cm x 1.7 cm lucency at the operative site. This may represent postoperative changes secondary to prior resection of the metastatic deposit although recurrent metastasis cannot be excluded. Status post cholecystectomy. Normal spleen. Normal pancreas. Normal bilateral adrenal glands. Stable bilateral renal cysts. Incidental note is made of a left retroaortic renal vein. Surgical clips are seen at the gastroesophageal junction. Normal small intestine. Surgical anastomosis is seen at the rectosigmoid junction. The appendix is visualized and appears normal. There is diffuse atherosclerotic calcification of the abdominal aorta, without a demonstrated aneurysm. Normal inferior vena cava. Normal retroperitoneum. Normal urinary bladder. There is enlargement of the prostate gland. It measures 6.9 cm x 7.2 cm. This causes indentation at the bladder base more prominent on the right side. Normal abdominal wall. There are degenerative changes of the visualized lumbar spine. CT/Abdomen/Pelvis W IV Cont ONLY IMPRESSION: Status post localized dissection along the medial central portion of the right lobe liver as described with the persistent hypodensity at the operative site. Stable multiple bilateral renal cysts. Prostatic enlargement with indentation at the bladder base. Electronically Signed: Sharad Mendiola, at 9:00 EST , Service support ,
[2020-07-22 14:08] LABS: Carcinoembryonic Antigen 2.9 ng/mL (0.0-4.7)
== END ==
PROVIDERS: PCP Family Medicine; Referring Provider Internal Medicine Hematology & Oncology; Visit Provider Internal Medicine Hematology & Oncology
DX: C18.9 Malignant neoplasm of colon, unspecified (principal); C78.7 Secondary malignant neoplasm of liver and intrahepatic bile duct; Z85.038 Personal history of other malignant neoplasm of large intestine; Z90.49 Acquired absence of other specified parts of digestive tract
CPT/HCPCS: 36415; 71260; 74177; 80053; 82378; 85025; Q9967

== ENCOUNTER → 2020-09-29 15:50 | Outpatient (CLI) | payer MEDICARE, BC, SELFPAY ==
[2020-09-16 13:05] VITALS: BMI 25.3
[2020-09-29 18:04] LABS: AST(SGOT) 19 U/L (15-37); Alanine Aminotransfer ALT/SGPT 28 U/L (16-61); Albumin, Serum 3.7 g/dL (3.2-5.0); Alkaline Phosphatase 134 U/L (45-117); Anion Gap 4 (5-15); BUN 23 mg/dL (7-18); BUN/Creat Ratio 19.3 RATIO (10-20); Calcium,Total 8.7 mg/dL (8.5-10.1); Chloride 106 mmol/L (98-107); Cholesterol 233 mg/dL (200); Creatinine, Serum 1.19 mg/dL (0.70-1.30); EST Glomerular Filtration Rate 63 mL/min (>60); Est Glom Filt Rate - Afr Amer 76 mL/min (>60); Globulin 3.6 g/dL (2.2-4.2); Glucose 84 mg/dL (74-106); High Density Lipoprotein 55 mg/dL; Potassium 3.9 mmol/L (3.5-5.1); Protein, Total 7.3 g/dL (6.4-8.2); Sodium Level 141 mmol/L (136-145); Triglycerides 257 mg/dL; Very Low Density Lipoprotein 51 mg/dL (5-40)
== END ==
PROVIDERS: PCP Family Medicine; Visit Provider Family Medicine
DX: E78.5 Hyperlipidemia, unspecified (principal)
CPT/HCPCS: 36415; 80053; 80061

== ENCOUNTER → 2020-11-04 09:28 | Outpatient (CLI) | payer MEDICARE, BC, SELFPAY ==
[2020-11-04 08:08] VITALS: BMI 25.7
[2020-11-04 10:18] LABS: Absolute Lymphocyte Count 1.35 X10^3/uL (0.83-4.51); Absolute Neutrophil Count 4.4 X10^3/uL (2.0-7.7); Basophil# 0.02 X10^3/uL; Basophil% 0.3 % (0-1); Eosinophil# 0.06 X10^3/uL; Hematocrit 42.1 % (40-54); Hemoglobin 12.9 g/dL (13.0-16.5); Lymphocyte # 1.35 X10^3/ul (0.83-4.51); Lymphocyte % 21.4 % (19-41); Mean Corp Hgb Conc 30.6 g/dL (32-36); Mean Corpuscular Hgb 29.6 pg (27.0-32.0); Mean Corpuscular Volume 96.6 fL (80-94); Mean Platelet Vol. 11.7 fl (6.2-12.0); Monocyte# 0.43 X10^3/uL; Monocyte% 6.8 % (0-10); NRBC Flagged by Analyzer 0 % (0-5); Neutrophil # 4.41 X10^3/uL (2.7-7.7); Platelet Count 158 K/mm3 (150-450); RBC Distribution Width CV 13.5 % (11.6-14.6); RBC Distribution Width SD 48.9 fl (35.1-43.9); Red Blood Count 4.36 M/mm3 (4.6-6.2); White Blood Count 6.3 K/mm3 (4.4-11.0)
[2020-11-04 10:42] LABS: Vitamin B12 520 pg/mL (211-911)
[2020-11-04 10:59] LABS: BUN 20 mg/dL (7-18); Creatinine, Serum 1.06 mg/dL (0.70-1.30); Glucose 90 mg/dL (74-106)
[2020-11-04 11:00] LABS: AST(SGOT) 23 U/L (15-37); Alanine Aminotransfer ALT/SGPT 31 U/L (16-61); Albumin, Serum 3.6 g/dL (3.2-5.0); Alkaline Phosphatase 142 U/L (45-117); Anion Gap 3 (5-15); BUN/Creat Ratio 18.9 RATIO (10-20); Calcium,Total 8.9 mg/dL (8.5-10.1); Chloride 104 mmol/L (98-107); EST Glomerular Filtration Rate 72 mL/min (>60); Est Glom Filt Rate - Afr Amer 87 mL/min (>60); Globulin 3.6 g/dL (2.2-4.2); Potassium 4.3 mmol/L (3.5-5.1); Protein, Total 7.2 g/dL (6.4-8.2); Sodium Level 139 mmol/L (136-145)
[2020-11-04 12:05] LABS: BUN 20 mg/dL (7-18); Creatinine, Serum 1.05 mg/dL (0.70-1.30); EST Glomerular Filtration Rate 72 mL/min (>60); Est Glom Filt Rate - Afr Amer 88 mL/min (>60); Thyroid Stim Hormone (TSH) 4.69 uIU/mL (0.358-3.74)
[2020-11-05 12:17] LABS: Carcinoembryonic Antigen 1.8 ng/mL (0.0-4.7)
== END ==
PROVIDERS: Internal Medicine Hematology & Oncology; PCP Family Medicine; Referring Provider Psychiatry & Neurology Neurology; Visit Provider Psychiatry & Neurology Neurology
DX: F03.90 Unspecified dementia, unspecified severity, without behavioral disturbance, psychotic disturbance, mood disturbance, and anxiety (principal); C18.9 Malignant neoplasm of colon, unspecified; C78.7 Secondary malignant neoplasm of liver and intrahepatic bile duct
CPT/HCPCS: 36415; 80053; 82378; 82565; 82607; 82746; 84443; 84520; 85025

== ENCOUNTER → 2020-11-14 10:02 | Outpatient (CLI) | payer MEDICARE, BC, SELFPAY ==
[2020-11-04 08:08] VITALS: BMI 25.7
--- NOTE | 2020-11-14 10:03 | MRI_ITS ---
STUDY: MRI BRAIN WITH AND WITHOUT CONTRAST REASON FOR EXAM: Male, 80 years old. Dementia TECHNIQUE: Standardized multiplanar fat and water weighted pulse sequences were obtained. IV 20ML dOTAREM was administered for the contrast portion of the examination. COMPARISON: None. FINDINGS: There is moderate cerebral atrophy with widening of the extra-axial spaces and ventricular dilatation. There are multiple white matter hyperintensities, distributed throughout the deep white matter tracts of the cerebral hemispheres, consistent with moderate chronic white matter ischemic changes. There is no evidence for recent intracranial ischemia or other cause of cytotoxic edema on diffusion weighted imaging (DWI). Normal T2* images of the brain without demonstrated susceptibility artifact. There is no demonstrated hemosiderin stain. Normal bilateral basal ganglia. Normal thalami. There is no extra-axial fluid accumulation. Normal flow voids within the major intracranial circulation suggesting patency by spin echo criteria. Normal venous enhancement. There is no enhancing intra-axial or extra-axial abnormality. Normal sella turcica, pituitary gland, infundibular stalk, optic chiasm and hypothalamus. Normal tectal plate and pineal gland. Normal midbrain, yvonne and medulla. Normal cerebellum. Normal basal cisterns. Normal bilateral temporal bones. Normal bilateral internal auditory canals. No demonstrated orbital abnormality, within the constraints of a routine brain study. Normal visualized paranasal sinuses. Normal calvarium and skull base. Normal visualized soft tissue structures. Normal visualized upper cervical spine. MRI/Brain W/WO Contrast IMPRESSION: Involutional changes of the brain, as described above. No acute infarct. Electronically Signed: Washington Paulino MD at 12:30 EDT Tel , Service support ,
== END ==
PROVIDERS: PCP Family Medicine; Referring Provider Psychiatry & Neurology Neurology; Visit Provider Psychiatry & Neurology Neurology
DX: F03.90 Unspecified dementia, unspecified severity, without behavioral disturbance, psychotic disturbance, mood disturbance, and anxiety (principal)
CPT/HCPCS: 70553; A9575

== ENCOUNTER → 2021-01-08 14:15 | Outpatient (CLI) | payer MEDICARE, BC, SELFPAY ==
[2021-01-08 13:09] VITALS: BMI 25.1
== END ==
PROVIDERS: PCP Family Medicine; Referring Provider Family Medicine; Visit Provider Family Medicine
DX: E04.1 Nontoxic single thyroid nodule (principal)
CPT/HCPCS: 36415; 84443

== ENCOUNTER 2021-09-10 16:46 | Outpatient (CLI) | payer MEDICARE, BC, SELFPAY ==
[2021-09-10 19:12] LABS: Thyroid Stim Hormone (TSH) 2.27 uIU/mL (0.358-3.74)
== END 2021-09-10 23:59 | disposition home or self-care (01) ==
LOC: MTLAB 16:47
PROVIDERS: Referring Provider Nurse Practitioner Family; Visit Provider Nurse Practitioner Family
DX: E04.1 Nontoxic single thyroid nodule (principal)
CPT/HCPCS: 36415; 84443

== ENCOUNTER → 2023-03-07 23:59 | Outpatient (RCR) | payer MEDICARE, BC, SELFPAY ==
[2020-04-29 09:38] VITALS: BMI 24.7
== END ==
LOC: HH 06-11 18:52
PROVIDERS: Visit Provider Nurse Practitioner Adult Health
DX: R33.9 Retention of urine, unspecified (principal)
CPT/HCPCS: 87086